=== PATIENT | male | born 1980 | race Caucasian/White ===

== ENCOUNTER 2024-06-14 08:34 | Outpatient (AMB) | payer OTHER, SELFPAY ==
--- NOTE | 2024-06-14 08:38 | A.OFFPC_ITS ---
Vital Signs 06/14/24 08:42 Height 5 ft 9 in Weight 224 lb 6 oz BMI 33.1 BP 120/78 Blood Pressure Location Lt brachial Position Sitting Pulse 71 Pulse Source Pulse Oximeter Pulse Oximetry (%) 96 Oxygen Delivery Method Room Air Intake Visit Reasons: [facility] Sandblaster Paint Sprayer Required: No Accompanied by: Self / Same As Patient Allergies amoxicillin Allergy (Mild, Verified 06/14/24 08:52) Hives Medication List - Last Reconciled 06/14/24 by FRANCISCA Huber No Known Home Meds Tobacco use date assessed: 06/14/24 Dental Screening Dental Screen Date: 06/14/24 Did you have a dental visit in the last 12 months?: Yes Did you have a dental problem in the last 6 months where you did not have access to dental care?: No Was dental information given to patient?: Patient has dentist HPI [facility] HPI Details Previous PCP: Ariel Santos, [facility] Last visit: a while ago Last PE: 2020 Specialist: GI digestive issues, report that he was usign to much ibuprofen on a daily basis, colonoscopy OBGYN:n/a Past medical history: Erectile dysfunction, HSV infection, hyperlipidemia, IBS, lactose intolerance, proctitis, hx of anterior cruciate ligament tear(Left) in High school Medications: Valacyclovir 1GM BID for out break, sildenafil 50 mg Family HX: Mother (SD) and Breast cancer Problem: The patient is 44 year old male presenting to [facility] Patient reports that he moved from [facility] and reports that his last exam was 2020 The patient reports that about a month ago he had streaks of blood in his semen Reports that this went on for about 8 weeks last year Reports that the only thing that he noticed was that is right testicle was bigger than left Reports mild intermittent tenderness to right testicle with palpation He also reports a decrease in his urine stream when urinating He denies increased frequency or urge. Denies dysuria. Denies discharged Patient declined STD testing. Urinalysis and scrotal ultrasound was ordered PSA was also ordered. Will refer the patient to urology as well The requested for his medications to be refilled. He denies shortness of breath, chest pain, heart palpitation, dizziness Denies abdominal pain and change in bowel habits Reports that he was seen GI and obtain a colonoscopy for recurrent stomach irritation Reports that he stopped using ibuprofen and noticed that was the cause of tarango his stomach issues [facility] Medical History (Updated 06/14/24 @ 12:12 by FRANCISCA Huber) Hyperlipidemia Lactose intolerance Proctitis IBS (irritable bowel syndrome) Erectile dysfunction HSV-1 (herpes simplex virus 1) infection Surgical History (Updated 06/14/24 @ 12:12 by FRANCISCA Huber) History of repair of anterior cruciate ligament of left knee Family History (Updated 06/14/24 @ 11:42 by FRANCISCA Huber) Mother Breast cancer Myocardial infarction Other Heart disease Social History Housing: Apartment Patient Tobacco Use Status: Never used Tobacco e-Cigarette/Vaping Use: Never Used Second Hand Smoke Exposure: No service: No Current occupational status: employed Current occupational exposures/hazards: Yes Cognitive needs: No Hearing needs: No Vision needs: Yes Questionnaire PHQ-9 Over the last 2 weeks, how often have you been bothered by any of the following problems? 1. Little interest or pleasure in doing things: not at all 2. Feeling down, depressed, or hopeless: not at all 3. Trouble falling or staying asleep, or sleeping too much: not at all 4. Feeling tired or having little energy: not at all 5. Poor appetite or overeating: not at all 6. Feeling bad about yourself - or that you are a failure or have let yourself or your family down: not at all 7. Trouble concentrating on things, such as reading the newspaper or watching television: not at all 8. Moving or speaking so slowly that other people could have noticed. Or the opposite - being so fidgety or restless that you have been moving around a lot more than usual: not at all 9. Thoughts that you would be better off or of hurting yourself in some way: not at all Total score: 0 Depression Screening Interpretation: Negative Depression Screening Done: Yes 71580 - PHQ-9 Billing: Yes Source: Developed by Drs. Joshua Villanueva, Jenny Kay, Clark Woody and colleagues, with an educational raymundo from [employer]. Thrive Questionnaire Date Thrive assessed: 06/14/24 I am a: Patient What is your living situation today?: I have a steady place to live Within the past 12 months, did the food you bought not last and you didn't have the money to get more?: Never true Within the past 12 months, did you worry whether your food would run out before you got money to buy more?: Never true Do you have trouble paying for medicines?: No Do you have trouble getting transportation to medical appointments?: No Do you have trouble paying your heating and electricity bill?: No Do you have trouble taking care of your child, family member or friend?: No Do you have trouble with day-to-day activities such as bathing, preparing meals, shopping, managing finances, etc.?: No Are you currently unemployed and looking for a job?: No Are you interested in more education?: Yes Please select the resources that you would like help with: None Currently or been in a relationship where the following occur: No concerns reported THRIVE Score: 0 AUDIT C Alcohol Use Questionnaire (AUDIT-C) 1. How often do you have a drink containing alcohol?: Never 3. How often do you have six or more drinks on one occasion?: Never Total Score: 0 ALTAGRACIA-7 AMB Questionnaire ALTAGRACIA-7 Date ALTAGRACIA - 7 assessed: 06/14/24 Feeling nervous, anxious, or on edge: 0 = Not at all Not being able to stop or control worryin = Not at all Worrying too much about different things: 0 = Not at all Trouble relaxin = Not at all Being so restless that it is hard to sit still: 0 = Not at all Becoming easily annoyed or irritable: 0 = Not at all Feeling afraid as if something awful might happen: 0 = Not at all Total ALTAGRACIA-7 score (0-4 normal; 5-9 mild; 10-14 moderate; 15-21 severe): 0 Source: Developed by Drs. Joshua Villanueva, Jenny Kay, Clark Woody and colleagues, with an educational raymundo from [employer]. ALTAGRACIA-7 Assessment Billing ALTAGRACIA-7 Assessment Tool: ALTAGRACIA-7 Assessment 20600 Review of Systems Const Details: Denies chills, Denies fatigue, Denies fever(s), Denies headache(s) and Denies weakness HEENT Denies change in vision, Denies dizziness, Denies headache(s), Denies hearing loss, Denies nasal congestion, Denies sinus pain, Denies sinus pressure and Denies sore throat Card Denies chest pain, Denies lightheadedness, Denies dyspnea and Denies other (palpitations) Resp Denies cough, Denies dyspnea and Denies wheezing GI Denies abdominal pain, Denies melena, Denies hematochezia, Denies change in bowel habits, Denies dyspepsia and Denies nausea Denies hematuria and Denies dysuria other: weak urinary stream. intermittent scrotal tenderness Musc Denies abnormal gait, Denies myalgias, Denies arthralgias, Denies numbness and Denies tingling Skin/Breast Denies rash, Denies unusual bruising and Denies wounds Neuro Denies abnormal gait, Denies dizziness, Denies headache(s), Denies memory loss, Denies numbness, Denies Sensory deficit (Neuro), Denies tingling and Denies wea kness Psych Denies anxiety, Denies depression and Denies memory loss Endo Denies cold intolerance, Denies fatigue, Denies heat intolerance, Denies polydipsia and Denies polyuria Jack/Lymph Denies easy bleeding and Denies easy bruising Aller/Immun Denies wheezing Physical exam (Primary Care) Vital Signs: Last Vital Signs Pulse 71 06/14/24 08:42 BP 120/78 06/14/24 08:42 Pulse Ox 96 06/14/24 08:42 Oxygen Delivery Method Room Air 06/14/24 08:42 BMI result Body Mass Index 33.1 Tobacco/Smoking Status: Tobacco use Status Tobacco use date assessed 06/14/24 06/14/24 08:49 Patient Tobacco Use Status Never used Tobacco 06/14/24 08:49 e-Cigarette/Vaping Use Never Used 06/14/24 08:49 PHQ-9: PHQ-9 Score PHQ-9: Total score 0 06/14/24 08:58 Depression Screening Interpretation: Negative Thrive Assessment: Date of Thrive Assessment Date Thrive assessed 06/14/24 06/14/24 08:49 Currently or been in a relationship where the following occur: No concerns reported Const Other: General: no acute distress, well developed, alert and awake Nutritional Appearance: well nourished Orientation/consciousness: patient oriented x3 HENMT Head: Yes normocephalic and Yes atraumatic Ears: hearing grossly normal bilaterally and TM's normal bilaterally General nose exam: Normal external nose present and Normal nares present Mouth: Normal oral and palatal mucosa present and moist mucous membranes Teeth and gingiva: dentition normal Throat: Yes oropharynx normal Eyes Pupils: Equal, round and reactive pupils present and Pupil accommodation reflex normal EOM: EOMs intact bilaterally Neck Neck: Yes normal visual inspection, Yes no lymphadenopathy and Yes trachea midline Lymphatic: no lymphadenopathy noted Resp Effort & Inspection: normal respiratory effort Auscultation: clear to auscultation bilaterally Cardio Rate: regular rate Rhythm: regular rhythm Heart sounds: S1 normal heart sound present, S2 normal heart sound present, no gallops, no murmurs and no rubs GI Palpation (GI): No Abdominal aortic bruit present, Soft to palpation, nontender, No hepatosplenomegaly present and No Rebound tenderness present Auscultation: normal bowel sounds General: Yes no CVA tenderness other: normal appearing testicles, no tenderness with palpation Back/Spine/Pelvis Back: no CVA tenderness Cervical Spine: cervical ROM normal and No Cervical spine tenderness Thoracic/Lumbar Spine: thoraco-lumbar ROM normal, No pain with thoraco-lumbar ROM, No thoracic spinal tenderness and No lumbar spinal tenderness Skin General: warm and dry. Normal skin color. Normal skin turgor Lesions: no lesions Rashes: no rashes Trauma: no lacerations or abrasions Wounds: no wounds Nails: normal Neuro General: patient oriented x3, gait normal Cranial nerves: Yes Equal, round and reactive pupils present Cognition (Neuro): normal cognition Gait exam (Neuro): Normal gait present Extrem General: Yes normal to inspection, No edema and No calf tenderness Psych Appearance: grossly normal Affect: normal affect Attitude: cooperative Thought process: Normal thought process present Coding Level of Care Code New Pt Level 4 (19943) Diagnoses Urinary stream slowing R39.198 Bloody ejaculation R36.1 HSV-1 (herpes simplex virus 1) infection B00.9 Erectile dysfunction, unspecified erectile dysfunction type N52.9 Erectile dysfunction type: unspecified Tenderness of scrotum N50.9 Additional Codes PHQ-9 - 06692 - PHQ-9 Billing: Yes ([id number]) ALTAGRACIA-7 Assessment Billing - ALTAGRACIA-7 Assessment Tool: ALTAGRACIA-7 Assessment 67138 ([id number]) Time Spent (min) 39 Assessment & Plan Assessment & Plan (1) Urinary stream slowing: Code(s): R39.198 - Other difficulties with micturition Category: Medical Plan: The reports that he noticed that his urinary stream is weaker than before He is denying any other urinary symptoms at this time urinalysis and a PSA ordered. considered referring the patient to urology (2) Bloody ejaculation: Code(s): R36.1 - Hematospermia Category: Medical Plan: Reports this happened about 6 months ago for about an eight week span Reports that he never got this evaluated Will order and scrotal US, urinalysis, and PSA. The declines STD testing (3) HSV-1 (herpes simplex virus 1) infection: Code(s): B00.9 - Herpesviral infection, unspecified Category: Medical Plan: Valacyclovir 1 gm refiled. Reports outbreaks with stress (4) Erectile dysfunction: Code(s): N52.9 - Male erectile dysfunction, unspecified Category: Medical Qualifiers: Erectile dysfunction type: unspecified Qualified Code(s): N52.9 - Male erectile dysfunction, unspecified Plan: Sildenafil 50 mg daily PRN refilled (5) Tenderness of scrotum: Code(s): N50.9 - Disorder of male genital organs, unspecified Category: Medical Plan: Reports that the tenderness is intermittent. No tenderness on exam today scrotal US ordered Plan The patient to return in 1 month for physical exam Orders: Orders CK, Total+Isoenzymes, Serum Today Z00.00 - Encounter for general adult medical examination without abnormal findings Complete Blood Count Auto Diff Today Z00.00 - Encounter for general adult medical examination without abnormal findings Lipid Panel Today Z00.00 - Encounter for general adult medical examination without abnormal findings UA CC w/rflx Micro + Cult Today Z00.00 - Encounter for general adult medical examination without abnormal findings PSA,Total (Free>4and<10) Today R36.1 - Hematospermia, R39.198 - Other difficulties with micturition TSH reflex Free T4 Today Z00.00 - Encounter for general adult medical examination without abnormal findings Vitamin D 25-OH Total Today Z00.00 - Encounter for general adult medical examination without abnormal findings Glucose Fasting Today Z00.00 - Encounter for general adult medical examination without abnormal findings US scrotum Today R36.1 - Hematospermia Medications: New valacyclovir 1,000 mg PO BID 60 tabs 2RF sildenafil (Viagra) administer 30 minutes to 4 hours before activity 50 mg PO DAILY PRN 30 tabs 1RF sexual activity valacyclovir Take during outbreaks 1,000 mg PO BID 20 tabs 2RF
--- OUTSIDE RECORDS SUMMARY | 2024-06-14 08:38 | XMS_ITS | Encounter Summary ---
Author Organization [facility] Address [address] [place] [address] Care Team Providers Care Merchandise Distributor Name Role Phone Pcp, Amanda Primary Care Provider Sona Dial APRN Primary Care Provider Frank Hargrove MD Primary Care Provider Ariel Glass MD Primary Care Provider [phone] Reason for Visit * Reason Comments Medication Refill Encounter Details Date Type Department Care Team (Late st Contact Info) Description 06/02/2017 Refill [facility] [place] [address] [place] [phone] Ivory Vaca PA [address] [place] [address] Herpes simplex Social History Tobacco Use Types Packs/Day Years Used Date Smoking Tobacco: Former Alcohol Use Standard Drinks/Week Comments Not Asked 0 (1 standard drink = 0.6 oz pur e alcohol) Sex and Gender Information Value Date Recorded Sex Assigned at Not on file Gender Identity Not on file Sexual Orientation Not on file documented as of this encounter Plan of Treatment Not on file documented as of this encounter Visit Diagnoses Diagnosis Herpes simplex Herpes simplex without mention of complication documented in this encounter Care Teams Merchandise Distributor Relationship Specialty Start Date End Date Pcp, Amanda PCP - General General Medicine 08/16/15 04/24/18 Sona Hargrove APRN [address] [place] [address] PCP - General 04/25/18 05/26/18 Frank Hargrove MD [address] [place] [address] PCP - General Internal Medicine 05/27/18 02/10/21 Ariel Glass MD [address] [place] [id number] PCP - General Internal Medicine 02/11/21 documented as of this encounter
--- OUTSIDE RECORDS SUMMARY | 2024-06-14 08:38 | XMS_ITS | Encounter Summary ---
Author Organization [facility] Address [address] [place] [address] Care Team Providers Care Slurry Tank Tender Name Role Phone Unknown Pcp, Non Php Primary Care Provider Unava ilable Reason for Visit * Reason Comments Medical Record Encounter Details Date Type Department Care Team (Late st Contact Info) Description 05/22/2024 Telephone [facility] Care [address] [place] [phone] Ariel Glass MD [address] [place] [id number] Medical Record Social History Tobacco Use Types Packs/Day Years Used Date Smoking Tobacco: Never Assessed Comments:Smoking Status:No c urrent tobacco use Sex and Gender Information Value Date Recorded Sex Assigned at Not on file Legal Sex Male 8:36 PM EDT Gender Identity Not on file Sexual Orientation Not on file documented as of this encounter Miscellaneous Notes * Telephone Encounter - Martha Peoples - 05/22/2024 2:54 PM EST I scanned records request as urgent. When indexed please release. Thanks documented in this encounter Plan of Treatment Not on file documented as of this encounter Visit Diagnoses Not on filedocumented in this encounter Care Teams Slurry Tank Tender Relationship Specialty Start Date End Date Unknown Pcp, Non Php PCP - General 05/22/24 documented as of this encounter
--- OUTSIDE RECORDS SUMMARY | 2024-06-14 08:38 | XMS_ITS | Encounter Summary ---
Author Organization [facility] Address [address] [place] [address] Care Team Providers Care Hand Filer Balance Wheel Name Role Phone Pcp, Amanda Primary Care Provider Sona Dial APRN Primary Care Provider Frank Hargrove MD Primary Care Provider Ariel Glass MD Primary Care Provider [phone] Encounter Details Date Type Department Care Team (Late st Contact Info) Description 04/07/2018 Scanned Document [facility] INTERNAL MED SCAN Frnak Hargrove MD [address] [place] [address] Social History Tobacco Use Types Packs/Day Years [...] on filedocumented in this encounter Care Teams Hand Filer Balance Wheel Relationship Specialty Start Date End Date Pcp, No PCP - General General Medicine 08/16/15 04/24/18 Sona Hargrove APRN [address] [place] [address] PCP - General 04/25/18 05/26/18 Frank Hargrove MD [address] [place] [address] PCP - General Internal Medicine 05/27/18 02/10/21 Ariel Glass MD [address] [place] [id number] PCP - General Internal Medicine 02/11/21 documented as of this encounter
--- OUTSIDE RECORDS SUMMARY | 2024-06-14 08:38 | XMS_ITS | Clinical Summary ---
Author Organization [facility] Address [address] [place] [address] Care Team Providers Care Purchasing Administrative Assistant Name Role Phone Unknown Pcp, Non Php Primary Care Provider Unava ilable Allergies Active Allergy Reactions Criticality Noted Date Comments Amoxicillin 02/17/2017 Reactions: Hives , Reactions: Flushing Medications Valacyclovir HCl (VALTREX) 1 g tablet TAKE 2 TABLETS TWICE DAILY 4 0 8 Active Sildenafil Citrate (VIAGRA) 50 MG tablet TAKE 1 TABLET BY MOUTH 1 HOUR BEFORE NEEDED MAX DAILY DOSE 1 TABLET 6 5 1 Active Mesalamine (CANASA) 1000 MG suppository INSERT 1 SUPP Twice daily 15 suppository 0 2 Active Active Problems Problem Noted Date Diagnosed Date Erectile dysfunction 02/11/2021 Proctitis 01/28/2021 Lactose intolerance 04/23/2020 IBS (irritable bowel syndrome) 04/23/2020 HSV infection 12/04/2019 Hyperlipidemia 02/17/2017 Encounters Date Type Department Care Team Description 05/22/2024 Telephone [facility] Care [address] [place] [phone] Ariel Glass MD Medical Record from Last 3 Months Family History Medical History Relation Name Comments Cancer - Breast Mother malignant ne oplasm of breast : Mother Heart Disorder Mother acute myocard ial infarction : Mother Relation Name Status Comments Mother Social History Tobacco Use Types Packs/Day Years Used Date Smoking Tobacco: Never Assessed Comments:Smoking Status:No c urrent tobacco use Sex and Gender Information Value Date Recorded Sex Assigned at Not on file Legal Sex Male 8:36 PM EDT Gender Identity Not on file Sexual Orientation Not on file Last Filed Vital Signs Vital Sign Reading Time Taken Comments Blood Pressure 116/80 05/06/2021 8:14 AM EST Pulse 66 05/06/2021 8:14 AM EST Temperature 36.6 ??C (97.8 ??F) 05/06/2021 8:14 AM ES T Respiratory Rate 18 05/06/2021 8:14 AM EST Oxygen Saturation 98% 05/06/2021 8:14 AM EST Inhaled Oxygen Concentration - - Weight 91.2 kg (200 lb 15.9 oz) 05/06/2021 8:14 AM EST Height 172.7 cm (5' 8 ) 05/06/2021 8:14 AM EST Body Mass Index 30.56 05/06/2021 8:14 AM EST Plan of Treatment Health Maintenance Due Date Last Done Comments DTaP/Tdap/Td (1 - Tdap) 1998 Hep B (1 of 3 - 19+ 3-dose series) 1999 COVID-19 Vaccine (2023- season) 2023 Influenza (#1) 2023 Zoster (Shingrix) (1 of 2) 2030 Colonoscopy Discontinued 06/02/2018, 06/02/2018 Hepatitis C Screening Completed 05/01/2020 LDL Cholesterol Discontinued 05/06/2021, 09/2020, 04/07/2018 Physical Discontinued 05/06/2021, 03/27, 04/13/2019, Additional history exists HPV Vaccine Aged Out No longer eligi ble based on patient's age to complete this topic Hep A Aged Out No longer eligi ble based on patient's age to complete this topic Hib Aged Out No longer eligi ble based on patient's age to complete this topic Meningococcal ACWY Aged Out No longer eligible based on patient's age to complete this topic Pneumococcal Aged Out No longer eligi ble based on patient's age to complete this topic Procedures Procedure Name Priority Date/Time Associated Diagnosis Comments LIPID PANEL, PLASMA Routine 05/06/2021 9 :10 AM EST HEPATITIS C ANTIBODY W/ REFLEX TO RNA, QN, RT PCR Routine 05/01/2020 6:34 AM EST COLONOSCOPY Routine 06/02/2018 10:11 AM EST from Last 3 Months or Most Recently Relevant to Health Maintenance Results * (ABNORMAL) LIPID PANEL, PLASMA (05/06/2021 9:10 AM EST) Cholesterol 190 0 - 199 mg/dL [facility] CONVERSIONS Triglyceride 45 0 - 150 mg/dL [facility] CONVERSIONS VLDL Cholesterol 9 5 - 40 mg/dL [facility] CONVERSIONS HDL Cholesterol 64 40 - 80 mg/dL [facility] CONVERSIONS LDL Cholesterol 117(H) 0 - 100 mg/dL [facility] CONVERSIONS Cholesterol Non-HDL 126 0 - 130 mg/dl PH[facility] CONVERSIONS CHOL/HDL Ratio 3.0 PH[facility] CONVERSIONS 05/06/2021 9:10 AM EST Narrative PHCT CONVERSIONS - 05/06/2021 2:18 PM EST FASTING: NO Fasting reference interval. ??[facility] Lipid testing results require a 12 hour fasting specimen. ??Use caution when interpreting non-fasting cholesterol and triglyceride results. Testing Performed at: [facility], [address] [place] [address], , Digital Experience Manager: Camelia Lomeli MD CL#[id number] 2:45PM by Ariel Glass: ??Glucose is just slightly elevated. ??Nearly normal. Lipids fine --all okay, no other action needed at this time us Ariel Glass MD LABORATORY Final Resul t PHCT CONVERSIONS * HEPATITIS C ANTIBODY W/ REFLEX TO RNA, QN, RT PCR (05/01/2020 6:34 AM EST) Hepatitis C virus Ab NON-REACT KANE NON-REACT KANE PH[facility] CONVERSIONS Hepatitis C virus Ab 0.05 <1.00 PH[facility] CONVERSIONS Comment:Antibodies to HCV we re not detected. NOTE: This does not entirely exclude the possibility of exposure to HCV since antibody production may lag infection. If there is a high suspicion of HCV infection HCV RNA testing may be of diagnostic value. 05/01/2020 6:34 AM EST Narrative PHCT CONVERSIONS - 05/01/2020 8:26 PM EST Testing Performed at: [facility], [address] [place] [address], [place] [address], , Digital Experience Manager: Chela Art MD CL#[id number] 11:27PM by Ariel Glass: ??All labs FINE. Glucose, Lipids ok. Thyroid fuction ok. us Ariel Glass MD LABORATORY Final Resul t PHCT CONVERSIONS * COLONOSCOPY (06/02/2018 10:11 AM EST) COLONOSCOPY, RESULT Normal PHCT CONVERSIONS DATE NEXT SCREEN VISIT 10 Years PHCT CONVERSIONS 06/02/2018 10:1 1 AM EST us Php Unknown Prov PROCEDURES Final Result PHCT CONVERSIONS from Last 3 Months or Most Recently Relevant to Health Maintenance Care Teams Purchasing Administrative Assistant Relationship Specialty Start Date End Date Unknown Pcp, Non Php PCP - General 05/22/24
--- OUTSIDE RECORDS SUMMARY | 2024-06-14 08:38 | XMS_ITS | Encounter Summary ---
Author Organization [facility] Address [address] [place] [address] Care Team Providers Care Green Energy Marketing Analyst Name Role Phone Pcp, Amanda Primary Care Provider Sona Dial APRN Primary Care Provider [phone] Frank Hargrove MD Primary Care Provider Ariel Glass MD Primary Care Provider Reason for Visit * Reason Comments Medication Refill Encounter Details Date Type Department Care Team (Late st Contact Info) Description 03/08/2017 Refill [facility] [place] [address] [place] [phone] Ivory Vaca PA [address] [place] [address] Herpes simplex Social History Tobacco [...] complication documented in this encounter Care Teams Green Energy Marketing Analyst Relationship Specialty Start Date End Date Pcp, Amanda PCP - General General Medicine 08/16/15 04/24/18 Sona Hargrove APRN [address] [place] [address] PCP - General 04/25/18 05/26/18 Frank Hargrove MD [address] [place] [address] PCP - General Internal Medicine 05/27/18 02/10/21 Ariel Glass MD [address] [place] [id number] PCP - General Internal Medicine 02/11/21 documented as of this encounter
--- OUTSIDE RECORDS SUMMARY | 2024-06-14 08:38 | XMS_ITS | Encounter Summary ---
Author Organization [facility] Address [address] [place] [address] Care Team Providers Care Flight Paramedic Name Role Phone Frank Hargrove MD Primary Care Provider [phone] Ariel Glass MD Primary Care Provider [phone] Encounter Details Date Type Department Care Team (Late st Contact Info) Description 06/02/2018 Scanned Document [facility] [address] [phone] Frank Connor MD [address] [place] [address] Social History Tobacco Use Types Packs/Day Years Used Date Smoking Tobacco: Former Smokeless Tobacco: Never Alcohol Use Standard Drinks/Week Comments Yes 0 (1 standard drink = 0.6 oz pur e alcohol) Sex and Gender Information Value Date Recorded Sex Assigned at Not on file Gender Identity Not on file Sexual Orientation Not on file documented as of this encounter Plan of Treatment Not on file documented as of this encounter Procedures Procedure Name Priority Date/Time Associated Diagnosis Comments PATHOLOGY REPORT 06/02/2018 12:0 0 AM EST documented in this encounter Results * (REPORT) PATHOLOGY REPORT (06/02/2018 12:00 AM EST) Frank Connor MD PATHOLOGY/CYTOLOGY O RDERABLES documented in this encounter Visit Diagnoses Not on filedocumented in this encounter Care Teams Flight Paramedic Relationship Specialty Start Date End Date Frank Hargrove MD PCP - General Internal Medicine 05/27/18 02/10/21 Ariel Glass MD [address] [place] [id number] PCP - General Internal Medicine 02/11/21 documented as of this encounter
--- OUTSIDE RECORDS SUMMARY | 2024-06-14 08:38 | XMS_ITS | Clinical Summary ---
Author Organization [facility] Address [address] [place] [address] Care Team Providers Care Capper Machine Operator Name Role Phone Ariel Glass MD Primary Care Provider [phone] Allergies Active Allergy Reactions Criticality Noted Date Comments Amoxicillin Unknown/Patient and Family Unable to Define Medium 08/27/2015 Medications Medication Sig Dispensed Refills Start Date End Date Status valACYclovir (VALTREX) 1000 MG tabletIndications :Herpes simplex Take 2 tablets (2,000 mg total) by mouth 2 (two) times a day. 4 tablet 2 12/19/2015 Active Probiotic Product (PROBIOTIC ACIDOPHILUS BEADS) Cap Take by mouth. Active Multiple Vitamin tablet Take 1 tablet by mouth daily. Active Misc Natural Products (APPLE CIDER VINEGAR DIET PO) Take by mouth. Active Na Sulfate-K Sulfate-Mg Sulf (SUPREP BOWEL PREP KIT) 17.5-3.13-1.6 GM/177ML SolutionIndicatio ns:Change in bowel function Take two 177 mL bottles as directed 2 Bottle 05/27/2018 Active Calcium Carb-Cholecalcife rol (CALCIUM 1000 + D PO) Take by mouth. Active Potassium 95 MG Tab Take by mouth. Active magnesium oxide 400 (241.3 Mg) MG Tab tablet Take 400 mg by mouth daily. Active mesalamine (CANASA) 1000 MG suppositoryIndica tions:Proctitis INSERT 1 SUPPOSITORY RECTALLY NIGHTLY FOR AT LEAST 1 TO 3 HOURS 14 suppository 05/29/2021 Active Active Problems No known active problems Family History Medical History Relation Name Comments Breast cancer Mother Heart attack Mother Relation Name Status Comments Mother Social [...] Sign Reading Time Taken Comments Blood Pressure 120/68 02/13/2021 10:09 AM EDT Pulse 60 02/13/2021 10:09 AM EDT Temperature 36.8 ??C (98.3 ??F) 02/13/2021 10:09 AM E DT Respiratory Rate 14 04/20/2016 10:10 AM EST Oxygen Saturation - - Inhaled Oxygen Concentration - - Weight 91.2 kg (201 lb) 02/13/2021 10:09 AM EDT Height 175.3 cm (5' 9 ) 02/13/2021 10:09 AM EDT Body Mass Index 29.68 02/13/2021 10:09 AM EDT Plan of Treatment Health Maintenance Due Date Last Done Comments Hepatitis C Virus Screening 1980 HIV Screening 1993 DTaP/Tdap/Td Vaccines (1 - Tdap) 1999 Hepatitis B Vaccines (1 of 3 - 19+ 3-dose series) 1999 Influenza Vaccine 11/25/2023 COVID-19 Vaccine (4 - 2023-2 5 season) 2023 04/29/2021, 06/24/2020, 05/05/2020 HPV Vaccines Aged Out No longer eligi ble based on patient's age to complete this topic Pneumococcal Vaccine: Pediatric (0-5 Years) and At-Risk Patients (6 to 49 Years) Aged Out No longer eligible b ased on patient's age to complete this topic Care Teams Capper Machine Operator Relationship Specialty Start Date End Date Ariel Glass MD [address] [place] [address] PCP - General Internal Medicine 02/11/21
[2024-06-14 08:42] VITALS: BP 120/78; PULSE 71; O2SAT 96; BMI 33.1
== END 2024-06-14 09:39 | disposition home or self-care (01) ==
DX: R39.198 Other difficulties with micturition (principal); R36.1 Hematospermia; B00.9 Herpesviral infection, unspecified; N52.9 Male erectile dysfunction, unspecified; N50.9 Disorder of male genital organs, unspecified

== ENCOUNTER → 2024-06-14 08:34 | Outpatient (BNVA) | payer OTHER, SELFPAY | DX: Z76.89 Persons encountering health services in other specified circumstances (principal); R39.198 Other difficulties with micturition; R36.1 Hematospermia; B00.9 Herpesviral infection, unspecified; N52.9 Male erectile dysfunction, unspecified; N50.9 Disorder of male genital organs, unspecified | CPT/HCPCS: 96127 ==

== ENCOUNTER 2024-07-05 11:55 | Outpatient (REF) | payer OTHER, SELFPAY ==
[2024-07-05 13:09] LABS: Appearance Urine Clear; Color Urine Yellow; Glucose Urine UA Negative (Negative); Leukocyte Esterase Urine Negative (Negative); Nitrite Urine Negative (Negative); PH 5.5 (5.0-9.0); Urine Blood Negative (Negative); Urine Ketones 40 mg/dL (Negative); Urine Protein Negative (Neg-Trace)
[2024-07-05 13:11] LABS: MANUAL DIFF FLAG NO
[2024-07-05 13:14] LABS: Basophils Percent Auto 0.5 % (0-2); Eosinophils Absolute Auto 0.1 X10*3/uL (0.0-0.4); Eosinophils Percent Auto 1.2 % (0-4); Hematocrit 49.2 % (42.0-52.0); Hemoglobin 17.1 g/dl (14.0-18.0); Imm Gran Abs Auto 0.01 X10*3/uL (0.00-0.03); Imm Gran Pct Auto 0.1 % (0.0-0.4); Lymphocytes Absolute Auto 2.2 X10*3/uL (1.2-4.9); Lymphocytes Percent Auto 26.3 % (20-40); Mean Corpuscular HGB Conc 34.8 g/dl (31.0-36.0); Mean Corpuscular Hemoglobin 30.4 pg (27.0-33.0); Mean Corpuscular Volume 87.5 fL (80.0-98.0); Mean Platelet Volume 10.4 fL (9.4-12.4); Monocytes Absolute Auto 0.7 X10*3/uL (0.1-1.2); Monocytes Percent Auto 8.4 % (2-11); Neutrophils Absolute Auto 5.3 x10*3/uL (2.0-8.3); Neutrophils Percent Auto 63.5 % (45-73); Platelet Count 277 X10*3/uL (160-400); Red Blood Count 5.62 X10*6/uL (4.60-5.80); Red Cell Distribution Width 12.1 % (11.0-16.0); White Blood Count 8.3 X10*3/uL (4.8-10.8)
[2024-07-05 13:33] LABS: Cholesterol 231 mg/dL (<200); Glucose Fasting 81 mg/dL (60-99); HDL Cholesterol 48 mg/dL (>40); LDL Cholesterol Calculated 167 mg/dL (<100); Triglycerides 82 mg/dL (<150)
[2024-07-05 13:46] LABS: PSA,Total (Free>4and<10) 0.92 ng/mL (0.00-4.00)
[2024-07-05 13:48] LABS: TSH reflex Free T4 0.07 uIU/mL (0.32-4.0); Vitamin D 25-OH Total 70.6 ng/mL (>30)
--- OUTSIDE RECORDS SUMMARY | 2024-07-05 13:59 | XMS_ITS | Encounter Summary ---
Author Organization [facility] Address [address] [place] [address] Care Team Providers Care Cargo Broker Name Role Phone Pcp, Amanda Primary Care Provider Sona Dial APRN Primary Care Provider Frank Hargrove MD Primary Care Provider Ariel Glass MD Primary Care Provider Encounter Details Date Type Department Care Team (Late st Contact Info) Description 04/07/2018 Scanned Document [facility] Frank Hargrove MD [address] [place] [address] Social History Tobacco Use Types Packs/Day Years [...] on filedocumented in this encounter Care Teams Cargo Broker Relationship Specialty Start Date End Date Pcp, No PCP - General General Medicine 08/16/15 04/24/18 Sona Hargrove APRN [address] [place] [address] PCP - General 04/25/18 05/26/18 Frank Hargrove MD [address] [place] [address] PCP - General Internal Medicine 05/27/18 02/10/21 Ariel Glass MD [address] [place] [address] PCP - General Internal Medicine 02/11/21 documented as of this encounter
--- OUTSIDE RECORDS SUMMARY | 2024-07-05 13:59 | XMS_ITS | Encounter Summary ---
Author Organization [facility] Address [address] [place] [address] Care Team Providers Care Fabrication Supervisor Name Role Phone Pcp, Amanda Primary Care Provider Sona Dial APRN Primary Care Provider Frank Hargrove MD Primary Care Provider [phone] Ariel Glass MD Primary Care Provider Reason for Visit * Reason Comments Medication Refill Encounter Details Date Type Department Care Team (Late st Contact Info) Description 03/08/2017 Refill [facility] [place] [address] [place] [address] Ivory Vaca PA [address] [place] [address] Herpes simplex Social History Tobacco [...] complication documented in this encounter Care Teams Fabrication Supervisor Relationship Specialty Start Date End Date Pcp, Amanda PCP - General General Medicine 08/16/15 04/24/18 Sona Hargrove APRN [address] [place] [address] PCP - General 04/25/18 05/26/18 Frank Hargrove MD [address] [place] [address] PCP - General Internal Medicine 05/27/18 02/10/21 Ariel Glass MD [address] [place] [address] PCP - General Internal Medicine 02/11/21 documented as of this encounter
--- OUTSIDE RECORDS SUMMARY | 2024-07-05 13:59 | XMS_ITS | Clinical Summary ---
Author Organization [facility] Address [address] [place] [address] Care Team Providers Care Operations Vocational Instructor Name Role Phone Ariel Glass MD Primary Care Provider Allergies Active Allergy Reactions Criticality Noted Date [...] age to complete this topic Care Teams Operations Vocational Instructor Relationship Specialty Start Date End Date Ariel Glass MD [address] [place] [address] PCP - General Internal Medicine 02/11/21
--- OUTSIDE RECORDS SUMMARY | 2024-07-05 13:59 | XMS_ITS | Clinical Summary ---
Author Organization [facility] Address [address] [place] [address] Care Team Providers Care Ornamental Machine Operator Name Role Phone Unknown Pcp, Non Php [...] Type Department Care Team Description 05/22/2024 Telephone [facility] Care [address] [place] [address] [phone] Ariel Glass MD Medical Record from Last [...] cholesterol and triglyceride results. Testing Performed at: [facility], [address] [place] [address], , Complaint Supervisor: Camelia Lomeli MD CL#[id number] 2:45PM by Ariel Glass: ??Glucose is just [...] 05/01/2020 8:26 PM EST Testing Performed at: [facility], [address] [place] [address], [place] [address], , Complaint Supervisor: Chela Art MD CL#[id number] 11:27PM by Ariel Glass: ??All labs FINE. [...] Recently Relevant to Health Maintenance Care Teams Ornamental Machine Operator Relationship Specialty Start Date End Date Unknown Pcp, Non Php PCP - General 05/22/24
--- OUTSIDE RECORDS SUMMARY | 2024-07-05 13:59 | XMS_ITS ---
Author Name [facility] Organization Unknown Encounters Encounter Type Encounter Reason Primary Diagnosis Location Date Ambulatory [facility] 04/27 Emergency NEEDS MED REFILL NEEDS MED REFILL [facility] 02/05/2023 Ambulatory Other specified diseases of anus and rectum [facility] 02/13/2021 Care Team Organization Name Specialty Phone Email Start Date End Da te [facility]2024 [facility] Primary Care 02/09/2023 025 [facility] Primary Care 02/05/2023 023 [facility] Primary Care 02/13/[id number] [facility] Primary Care 02/13/2021 02/14/20 [facility] Primary Care [id number]/13/[id number] [facility] Primary Care 01/27/2021 05/29/2021 [facility] OANH JOHNSON Primary Care
--- OUTSIDE RECORDS SUMMARY | 2024-07-05 14:00 | XMS_ITS | Encounter Summary ---
Author Organization [facility] Address [address] [place] [address] Care Team Providers Care Music Adapter Name Role Phone Pcp, Amanda Primary Care Provider Sona Dial APRN Primary Care Provider Frank Hargrove MD Primary Care Provider Ariel Glass MD Primary Care Provider Reason for Visit * Reason Comments Medication Refill Encounter Details Date Type Department Care Team (Late st Contact Info) Description 06/02/2017 Refill [facility] [place] [address] [place] [phone] Ivory Vaca PA [address] [place] [address] Herpes simplex Social History Tobacco [...] complication documented in this encounter Care Teams Music Adapter Relationship Specialty Start Date End Date Pcp, Amanda PCP - General General Medicine 08/16/15 04/24/18 Sona Hargrove APRN [address] [place] [address] PCP - General 04/25/18 05/26/18 Frank Hargrove MD [address] [place] [address] PCP - General Internal Medicine 05/27/18 02/10/21 Ariel Glass MD [address] [place] [address] PCP - General Internal Medicine 02/11/21 documented as of this encounter
--- OUTSIDE RECORDS SUMMARY | 2024-07-05 14:00 | XMS_ITS | Encounter Summary ---
Author Organization [facility] Address [address] [place] [address] Care Team Providers Care Wire Mesh Filter Fabricator Name Role Phone Frank Hargrove MD Primary Care Provider [phone] Ariel Glass MD Primary Care Provider [phone] Encounter Details Date Type Department Care Team (Late st Contact Info) Description 06/02/2018 Scanned Document [facility] [address] [phone] Frank Connor MD [address] [place] [address] Social History Tobacco Use Types Packs/Day Years [...] on filedocumented in this encounter Care Teams Wire Mesh Filter Fabricator Relationship Specialty Start Date End Date Frank Hargrove MD PCP - General Internal Medicine 05/27/18 02/10/21 Ariel Glass MD [address] [place] [address] PCP - General Internal Medicine 02/11/21 documented as of this encounter
[2024-07-05 14:37] LABS: Free T4 (Free Thyroxine) 1.24 ng/dL (0.71-1.85)
[2024-07-10 23:44] LABS: CK-BB None Detected (None Detected); CK-MB 0 % (<5); CK-MM 100 % (95-100); Creatine Kinase,Total,Serum 114 U/L (26-366)
== END 2024-07-05 11:56 | disposition home or self-care (01) ==
LOC: HO.10HDL 11:55
DX: Z00.00 Encounter for general adult medical examination without abnormal findings (principal); R36.1 Hematospermia; R39.198 Other difficulties with micturition; Z12.5 Encounter for screening for malignant neoplasm of prostate; Z13.1 Encounter for screening for diabetes mellitus; Z13.6 Encounter for screening for cardiovascular disorders
CPT/HCPCS: 36415; 80061; 81003; 82306; 82552; 82947; 84153; 84439; 84443; 85025

== ENCOUNTER 2024-07-05 16:26 | Outpatient (REF) | payer OTHER, SELFPAY ==
--- NOTE | ~2024-07-05 | US_ITS ---
CLINICAL HISTORY: R36.1 - Hematospermia US SCROTUM WITH DOPPLER Comparison: None Findings: Right testicle normal echotexture, 4.0 x 2.2 x 3.7 cm. Left testicle normal echotexture, 3.8 x 2.2 x 3.0 cm. Color Doppler and arterial/venous spectral tracings of both testicles within normal limits. Multiple small cysts and/or spermatoceles in the right epididymis. Solitary small left epididymis head cyst. No epididymal hyperemia. There is a cwffm-hb-wfpdqtki left hydrocele. No varicoceles. The left appendix testis is identified and appears unremarkable. IMPRESSION: 1. No testicular torsion or acute epididymo-orchitis. 2. Multiple cystic lesions in the right epididymis with solitary cystic lesion on the left. 3. Jvcdv-bn-gkxuotes left hydrocele. This document has been electronically signed by: Megan Painter DO on 07/05/2024 17:09:56
--- OUTSIDE RECORDS SUMMARY | 2024-07-05 18:36 | XMS_ITS | Clinical Summary ---
Author Organization [facility] Address [address] [place] [address] Care Team Providers Care Mechanism Inspector Name Role Phone Ariel Glass MD Primary Care Provider [phone] Allergies Active Allergy Reactions Criticality Noted Date [...] age to complete this topic Care Teams Mechanism Inspector Relationship Specialty Start Date End Date Ariel Glass MD [address] [place] [address] PCP - General Internal Medicine 02/11/21
--- OUTSIDE RECORDS SUMMARY | 2024-07-05 18:36 | XMS_ITS | Encounter Summary ---
Author Organization Formerly [facility] Address [address] [place] [address] Care Team Providers Care Regrind Mill Operator Name Role Phone Pcp, Amanda Primary Care Provider Sona Dial APRN Primary Care Provider Frank Hargrove MD Primary Care Provider Ariel Glass MD Primary Care Provider Reason for Visit * Reason Comments Medication Refill Encounter Details Date Type Department Care Team (Late st Contact Info) Description 06/02/2017 Refill [facility] [place] [address] [place] [address] Ivory Vaca PA [address] [place] [address] Herpes simplex Social History Tobacco [...] complication documented in this encounter Care Teams Regrind Mill Operator Relationship Specialty Start Date End Date Pcp, Amanda PCP - General General Medicine 08/16/15 04/24/18 Sona Hargrove APRN [address] [place] [address] PCP - General 04/25/18 05/26/18 Frank Hargrove MD [address] [place] [address] PCP - General Internal Medicine 05/27/18 02/10/21 Ariel Glass MD [address] [place] [id number] PCP - General Internal Medicine 02/11/21 documented as of this encounter
--- OUTSIDE RECORDS SUMMARY | 2024-07-05 18:36 | XMS_ITS | Clinical Summary ---
Author Organization [facility] Address [address] [place] [address] Care Team Providers Care Import Customer Service Manager Name Role Phone Unknown Pcp, Non Php [...] Type Department Care Team Description 05/22/2024 Telephone [facility] Care [address] [place] [address] [phone] Ariel Glass MD Medical Record from Last [...] cholesterol and triglyceride results. Testing Performed at: [facility], [address] [place] [address], , Meat Grinder: Camelia Lomeli MD CL#[id number] 2:45PM by Ariel Glass: ??Glucose is just [...] 05/01/2020 8:26 PM EST Testing Performed at: [facility], [address] [place] [address], [place] [address], , Meat Grinder: Chela Art MD CL#[id number] 11:27PM by Ariel Glass: ??All labs FINE. [...] Recently Relevant to Health Maintenance Care Teams Import Customer Service Manager Relationship Specialty Start Date End Date Unknown Pcp, Non Php PCP - General 05/22/24
--- OUTSIDE RECORDS SUMMARY | 2024-07-05 18:36 | XMS_ITS | Encounter Summary ---
Author Organization [facility] Address [address] [place] [address] Care Team Providers Care Senior Boiler Operator Name Role Phone Pcp, Amanda Primary Care Provider Sona Dial APRN Primary Care Provider Frank Hargrove MD Primary Care Provider [phone] Ariel Glass MD Primary Care Provider Reason for Visit * Reason Comments Medication Refill Encounter Details Date Type Department Care Team (Late st Contact Info) Description 03/08/2017 Refill [facility] [place] [address] [place] [address] Ivory Vaca PA [address] [place] [address] Herpes simplex Social History Tobacco [...] complication documented in this encounter Care Teams Senior Boiler Operator Relationship Specialty Start Date End Date Pcp, Amanda PCP - General General Medicine 08/16/15 04/24/18 Sona Hargrove APRN [address] [place] [address] PCP - General 04/25/18 05/26/18 Frank Hargrove MD [address] [place] [id number] PCP - General Internal Medicine 05/27/18 02/10/21 Ariel Glass MD [address] [place] [id number] PCP - General Internal Medicine 02/11/21 documented as of this encounter
--- OUTSIDE RECORDS SUMMARY | 2024-07-05 18:36 | XMS_ITS | Encounter Summary ---
Author Organization [facility] Address [address] [place] [address] Care Team Providers Care Cello Teacher Name Role Phone Pcp, Amanda Primary Care Provider Sona Dial APRN Primary Care Provider Frank Hargrove MD Primary Care Provider Ariel Glass MD Primary Care Provider [phone] Encounter Details Date Type Department Care Team (Late st Contact Info) Description 04/07/2018 Scanned Document [facility] Frank Hargrove MD [address] [place] [address] Social History Tobacco Use Types Packs/Day Years [...] on filedocumented in this encounter Care Teams Cello Teacher Relationship Specialty Start Date End Date Pcp, No PCP - General General Medicine 08/16/15 04/24/18 Sona Hargrove APRN [address] [place] [address] PCP - General 04/25/18 05/26/18 Frank Hargrove MD [address] [place] [address] PCP - General Internal Medicine 05/27/18 02/10/21 Ariel Glass MD [address] [place] [phone] PCP - General Internal Medicine 02/11/21 documented as of this encounter
--- OUTSIDE RECORDS SUMMARY | 2024-07-05 18:36 | XMS_ITS | Encounter Summary ---
Author Organization [facility] Address [address] [place] [address] Care Team Providers Care Home Restoration Service Cleaner Name Role Phone Frank Hargrove MD Primary Care Provider [phone] Ariel Glass MD Primary Care Provider [phone] Encounter Details Date Type Department Care Team (Late st Contact Info) Description 06/02/2018 Scanned Document [facility] [address] [phone] Frank Connor MD [address] [place] [address] Social History Tobacco Use Types Packs/Day Years [...] on filedocumented in this encounter Care Teams Home Restoration Service Cleaner Relationship Specialty Start Date End Date Frank Hargrove MD PCP - General Internal Medicine 05/27/18 02/10/21 Ariel Glass MD [address] [place] [id number] PCP - General Internal Medicine 02/11/21 documented as of this encounter
== END 2024-07-05 16:27 | disposition home or self-care (01) ==
LOC: HO.US 16:26
DX: R36.1 Hematospermia (principal)
CPT/HCPCS: 76870

== ENCOUNTER → 2024-07-05 16:28 | Outpatient (BNV) | payer OTHER, SELFPAY | PROVIDERS: Visit Provider Radiology Diagnostic Radiology | DX: N50.3 Cyst of epididymis (principal); N43.3 Hydrocele, unspecified | CPT/HCPCS: 76870 ==

== ENCOUNTER 2024-07-12 08:25 | Outpatient (AMB) | payer OTHER, SELFPAY ==
--- NOTE | 2024-07-12 08:28 | MHC.PC.OV ---
Vital Signs 07/12/24 08:33 Height 5 ft 9 in Weight 223 lb 12.8 oz BMI 33.0 BP 130/88 Blood Pressure Location Lt brachial Position Sitting Pulse 64 Pulse Source Pulse Oximeter Temp 98.9 F Temp Source Oral Pulse Oximetry (%) 96 Oxygen Delivery Method Room Air Intake Visit Reasons: Annual Exam Drive Thru Order Taker Required: No Accompanied by: Self / Same As Patient Allergies amoxicillin Allergy (Mild, Verified 07/12/24 08:59) Hives Medication List - Last Reconciled 07/12/24 by FRANCISCA Huber sildenafil (Viagra) 50 mg PO DAILY PRN valacyclovir 1,000 mg PO BID Tobacco use date assessed: 07/12/24 Dental Screening Dental Screen Date: 07/12/24 Did you have a dental visit in the last 12 months?: Yes Did you have a dental problem in the last 6 months where you did not have access to dental care?: No Was dental information given to patient?: Patient has dentist HPI Annual Exam HPI Details The patient is presenting for annual physical Dentist: up to date Eye: up to date Snellen: Right: Left: Corrected vision: glasses STI screening: Colonoscopy: Pap Smer: PHQ-9: Flu: declines COVID: x2 Tdap: up to date Diet: regular Exercise: None Scrotal US: 1. No testicular torsion or acute epididymo-orchitis. 2. Multiple cystic lesions in the right epididymis with solitary cystic lesion on the left. 3. Gxxft-sz-sfcmkdyi left hydrocele. urology referral was placed on the patient last visit The patient would like his testosterone checked as well. Feeling tired coming from working at times. Reports that he sit down all day and should not feel as tired as he does. Reports that he does not urinate with as great force like he did in his twenty's-The patient was referred to urology on his last appt Reports that he has attention issues: Reports not being focused. He wants to be tested for is. 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 1. Little interest or pleasure in doing things: not at all 2. Feeling down, depressed, or hopeless: not at all 3. Trouble falling or staying asleep, or sleeping too much: not at all 4. Feeling tired or having little energy: not at all 5. Poor appetite or overeating: not at all 6. Feeling bad about yourself - or that you are a failure or have let yourself or your family down: not at all 7. Trouble concentrating on things, such as reading the newspaper or watching television: more than half the days 8. Moving or speaking so slowly that other people could have noticed. Or the opposite - being so fidgety or restless that you have been moving around a lot more than usual: not at all 9. Thoughts that you would be better off or of hurting yourself in some way: not at all Total score: 2 Depression Screening Interpretation: Negative Depression Screening Done: Yes Source: Developed by Drs. Joshua Villanueva, Jenny Kay, Clark Woody and colleagues, with an educational raymundo from [employer]. Thrive Questionnaire Date Thrive assessed: 06/14/24 I am a: Patient What is your living situation today?: I have a steady place to live Within the past 12 months, did the food you bought not last and you didn't have the money to get more?: Never true Within the past 12 months, did you worry whether your food would run out before you got money to buy more?: Never true Do you have trouble paying for medicines?: No Do you have trouble getting transportation to medical appointments?: No Do you have trouble paying your heating and electricity bill?: No Do you have trouble taking care of your child, family member or friend?: No Do you have trouble with day-to-day activities such as bathing, preparing meals, shopping, managing finances, etc.?: No Are you currently unemployed and looking for a job?: No Are you interested in more education?: Yes Please select the resources that you would like help with: None Currently or been in a relationship where the following occur: No concerns reported THRIVE Score: 0 AUDIT C Alcohol Use Questionnaire (AUDIT-C) 1. How often do you have a drink containing alcohol?: Never 3. How often do you have six or more drinks on one occasion?: Never Total Score: 0 ALTAGRACIA-7 AMB Questionnaire ALTAGRACIA-7 Date ALTAGRACIA - 7 assessed: 07/12/24 Feeling nervous, anxious, or on edge: 0 = Not at all Not being able to stop or control worryin = Not at all Worrying too much about different things: 0 = Not at all Trouble relaxin = Not at all Being so restless that it is hard to sit still: 0 = Not at all Becoming easily annoyed or irritable: 0 = Not at all Feeling afraid as if something awful might happen: 0 = Not at all Total ALTAGRACIA-7 score (0-4 normal; 5-9 mild; 10-14 moderate; 15-21 severe): 0 Source: Developed by Drs. Joshua Villanueva, Jenny Kay, Clark Woody and colleagues, with an educational raymundo from [employer]. Review of Systems Const Reports fatigue (reports feeling more tired than usual) and Denies headache(s) Eyes Denies loss of vision ENT Denies vertigo, Denies dizziness, Denies headache(s) and Denies sore throat Card Denies chest pain, Denies leg edema and Denies lightheadedness Resp Denies cough, Denies hemoptysis and Denies wheezing GI Denies abdominal pain, Denies melena, Denies constipation, Denies diarrhea and Denies vomiting Denies dysuria, Reports testicular mass (us showed multiple cysts in left and one solitary cyst in right), Denies urinary frequency, Denies urinary urgency and Reports other (Reports that is force is not like before) Musc Denies arthralgias, Denies joint swelling, Denies numbness and Denies tingling Neuro Denies Abnormal speech present, Denies behavioral changes, Denies vertigo, Denies dizziness, Denies headache(s), Denies loss of vision, Denies memory loss, Denies numbness and Denies tingling Psych Denies anxiety, Denies behavioral changes, Denies depression, Reports difficulty concentrating, Denies memory loss and Denies panic attacks Endo Reports fatigue (reports feeling more tired than usual) Jack/Lymph Denies easy bleeding and Denies easy bruising Aller/Immun Denies wheezing Physical exam (Primary Care) Vital Signs: Last Vital Signs Temp 98.9 F 07/12/24 08:33 Pulse 64 07/12/24 08:33 BP 130/88 07/12/24 08:33 Pulse Ox 96 07/12/24 08:33 Oxygen Delivery Method Room Air 07/12/24 08:33 BMI result Body Mass Index 33.0 Tobacco/Smoking Status: Tobacco use Status Tobacco use date assessed 07/12/24 07/12/24 08:44 Patient Tobacco Use Status Never used Tobacco 07/12/24 08:44 e-Cigarette/Vaping Use Never Used 07/12/24 08:44 PHQ-9: PHQ-9 Score PHQ-9: Total score 2 07/12/24 09:43 Depression Screening Interpretation: Negative Thrive Assessment: Date of Thrive Assessment Date Thrive assessed 06/14/24 07/12/24 08:29 Currently or been in a relationship where the following occur: No concerns reported Const General: healthy appearing, no acute distress, alert and awake Nutritional Appearance: well nourished Orientation/consciousness: oriented to person, oriented to place and oriented to time [facility] Ears: TM's normal bilaterally General nose exam: Normal nasal mucous membranes and turbinates present Eyes Conjunctivae: conjunctivae normal Sclerae: sclerae normal Pupils: Equal, round and reactive pupils present Neck Neck: Yes no lymphadenopathy and Yes no JVD Thyroid: Thyroid normal Carotids: no bruits Resp Effort & Inspection: normal respiratory effort and not tachypneic Auscultation: no crackles, no rales, no rhonchi and no wheezes Cardio Rate: regular rate Rhythm: regular rhythm Heart sounds: no murmurs and normal S1 and S2 GI Palpation (GI): Soft to palpation, nontender, no hepatomegaly and no splenomegaly Auscultation: normal bowel sounds General: Yes no CVA tenderness Scrotum: scrotal mass Back/Spine/Pelvis Back: no CVA tenderness Cervical Spine: No cervical muscular tenderness Thoracic/Lumbar Spine: No thoracic spinal tenderness and No lumbar spinal tenderness Skin General skin exam: no rashes or lesions noted and dry skin Neuro General: oriented to person, oriented to place, oriented to time and CN's II-XI intact bilaterally Cranial nerves: Yes Equal, round and reactive pupils present Speech: No Abnormal speech present Gait exam (Neuro): Normal gait present Motor exam (neuro): no tremor noted Deep tendon reflexes (DTR's): Right triceps reflex intensity grade: 2+, Left triceps reflex intensity grade: 2+, Right patellar reflex intensity grade: 2+ and Left patellar reflex intensity grade: 2+ Extrem General: Yes capillary refill normal, Yes no pedal edema and Yes no calf tenderness Right upper extremity: full ROM Left upper extremity: full ROM Right lower extremity: full ROM; no edema Left lower extremity: full ROM; no edema Psych Mental Status: mental status grossly normal Speech and movement: Normal speech and movement present Affect: normal affect Attitude: cooperative Thought process: Normal thought process present Results Reviewed Results Reviewed: Laboratory Tests 07/05/24 12:00 WBC 8.3 RBC 5.62 Hgb 17.1 Hct 49.2 MCV 87.5 Plt Count 277 Fasting Glucose 81 Total Creatine Kinase 114 Triglycerides 82 Cholesterol 231 H LDL Cholesterol, Calc 167 H HDL Cholesterol 48 Total PSA 0.92 25-OH Vitamin D Total 70.6 TSH 0.07 L Free T4 1.24 Urine Color Yellow Urine Appearance Clear Urine pH 5.5 Ur Specific [place] 1.010 Urine Protein Negative Urine Glucose (UA) Negative Urine Ketones 40 Urine Blood Negative Urine Nitrite Negative Ur Leukocyte Esterase Negative Coding Level of Care Code Est Pt Prev Care 40-64y(37454) Diagnoses Annual physical exam Z00.00 Bloody ejaculation R36.1 Urinary stream slowing R39.198 HSV-1 (herpes simplex virus 1) infection B00.9 Tenderness of scrotum N50.9 Hyperthyroidism E05.90 Tiredness R53.83 Pure hypercholesterolemia with target low density lipoprotein (LDL) cholesterol less than 130 mg/dL E78.00 Erectile dysfunction, unspecified erectile dysfunction type N52.9 Erectile dysfunction type: unspecified Time Spent (min) 39 Assessment & Plan Assessment & Plan (1) Annual physical exam: Code(s): Z00.00 - Encounter for general adult medical examination without abnormal findings Category: Medical Plan: Preventative guidelines and recent blood work were reviewed with the patient. The patient is up to date on all screenings The declines flu, reports taking the first two covid vaccines. (2) Bloody ejaculation: Code(s): R36.1 - Hematospermia Category: Medical Plan: Reports this happened about 6 months ago for about an eight week span Reports that he never got this evaluated US of scrotal completed and showed multiple cyst 1. No testicular torsion or acute epididymo-orchitis. 2. Multiple cystic lesions in the right epididymis with solitary cystic lesion on the left. 3. Pjble-ze-nsveprkl left hydrocele. urology referral was placed on the patient last visit (3) Urinary stream slowing: Code(s): R39.198 - Other difficulties with micturition Category: Medical Plan: The reports that he noticed that his urinary stream is weaker than before He is denying any other urinary symptoms at this time urinalysis and a PSA were both normal (4) HSV-1 (herpes simplex virus 1) infection: Code(s): B00.9 - Herpesviral infection, unspecified Category: Medical Plan: Valacyclovir 1 gm refiled. Reports outbreaks with stress (5) Tenderness of scrotum: Code(s): N50.9 - Disorder of male genital organs, unspecified Category: Medical Plan: Reports that the tenderness is intermittent. No tenderness on exam today scrotal US ordered (6) Hyperthyroidism: Code(s): E05.90 - Thyrotoxicosis, unspecified without thyrotoxic crisis or storm Category: Medical Plan: tsh 0.07, free T4 1.24 asymptomatic, will continue to monitor (7) Tiredness: Code(s): R53.83 - Other fatigue Category: Medical Plan: testosterone ordered. Discussed with the patient about exercising and losing weight and the positive benefits they have on energy (8) Pure hypercholesterolemia with target low density lipoprotein (LDL) cholesterol less than 130 mg/dL: Code(s): E78.00 - Pure hypercholesterolemia, unspecified Category: Medical Plan: T-chol 231, LDL 167 Reinforced low cholesterol diet and active as tolerated Discussed with patient about starting on medication. The patient would like to like make dietary changes first before starting medication (9) Erectile dysfunction: Code(s): N52.9 - Male erectile dysfunction, unspecified Category: Medical Qualifiers: Erectile dysfunction type: unspecified Qualified Code(s): N52.9 - Male erectile dysfunction, unspecified Plan: Continue Sildenafil 50 mg daily PRN Orders: Orders Comprehensive Sullivan. Panel Fast 07/12/24 E05.90 - Thyrotoxicosis, unspecified without thyrotoxic crisis or storm, R53.83 - Other fatigue, E78.00 - Pure hypercholesterolemia, unspecified TSH reflex Free T4 07/12/24 E05.90 - Thyrotoxicosis, unspecified without thyrotoxic crisis or storm, R53.83 - Other fatigue, E78.00 - Pure hypercholesterolemia, unspecified Triiodothyronine T3 Total 07/12/24 E05.90 - Thyrotoxicosis, unspecified without thyrotoxic crisis or storm, R53.83 - Other fatigue, E78.00 - Pure hypercholesterolemia, unspecified Triiodothyronine T3 Reverse 07/12/24 E05.90 - Thyrotoxicosis, unspecified without thyrotoxic crisis or storm, R53.83 - Other fatigue, E78.00 - Pure hypercholesterolemia, unspecified Free T4 (Free Thyroxine) 07/12/24 E05.90 - Thyrotoxicosis, unspecified without thyrotoxic crisis or storm, R53.83 - Other fatigue, E78.00 - Pure hypercholesterolemia, unspecified Thyroid Stimulating Immunoglob 07/12/24 E05.90 - Thyrotoxicosis, unspecified without thyrotoxic crisis or storm, R53.83 - Other fatigue, E78.00 - Pure hypercholesterolemia, unspecified Complete Blood Count Auto Diff 3 Months E78.00 - Pure hypercholesterolemia, unspecified, R53.83 - Other fatigue, E05.90 - Thyrotoxicosis, unspecified without thyrotoxic crisis or storm Comprehensive Sullivan. Panel Fast 3 Months E78.00 - Pure hypercholesterolemia, unspecified, R53.83 - Other fatigue, E05.90 - Thyrotoxicosis, unspecified without thyrotoxic crisis or storm Lipid Panel 3 Months E78.00 - Pure hypercholesterolemia, unspecified, R53.83 - Other fatigue, E05.90 - Thyrotoxicosis, unspecified without thyrotoxic crisis or storm Vitamin D 25-OH Total 3 Months E78.00 - Pure hypercholesterolemia, unspecified, R53.83 - Other fatigue, E05.90 - Thyrotoxicosis, unspecified without thyrotoxic crisis or storm Triiodothyronine T3 Free 07/12/24 E05.90 - Thyrotoxicosis, unspecified without thyrotoxic crisis or storm, R53.83 - Other fatigue, E78.00 - Pure hypercholesterolemia, unspecified Testosterone, Free/Total 07/12/24 E05.90 - Thyrotoxicosis, unspecified without thyrotoxic crisis or storm, R53.83 - Other fatigue, E78.00 - Pure hypercholesterolemia, unspecified Iodine, Serum/Plasma 07/12/24 E05.90 - Thyrotoxicosis, unspecified without thyrotoxic crisis or storm, R53.83 - Other fatigue, E78.00 - Pure hypercholesterolemia, unspecified TSH reflex Free T4 3 Months E78.00 - Pure hypercholesterolemia, unspecified, R53.83 - Other fatigue, E05.90 - Thyrotoxicosis, unspecified without thyrotoxic crisis or storm UA CC w/rflx Micro + Cult 3 Months E78.00 - Pure hypercholesterolemia, unspecified, R53.83 - Other fatigue, E05.90 - Thyrotoxicosis, unspecified without thyrotoxic crisis or storm Free T4 (Free Thyroxine) 3 Months E78.00 - Pure hypercholesterolemia, unspecified, R53.83 - Other fatigue, E05.90 - Thyrotoxicosis, unspecified without thyrotoxic crisis or storm Glucose Fasting 3 Months E78.00 - Pure hypercholesterolemia, unspecified, R53.83 - Other fatigue, E05.90 - Thyrotoxicosis, unspecified without thyrotoxic crisis or storm
[2024-07-12 08:33] VITALS: BP 130/88; PULSE 64; TEMP 37.2; O2SAT 96; BMI 33.0
== END 2024-07-12 09:32 | disposition home or self-care (01) ==
LOC: HO.HMCH 08:26
DX: Z00.00 Encounter for general adult medical examination without abnormal findings (principal); R36.1 Hematospermia; R39.198 Other difficulties with micturition; B00.9 Herpesviral infection, unspecified; N50.9 Disorder of male genital organs, unspecified; E05.90 Thyrotoxicosis, unspecified without thyrotoxic crisis or storm; R53.83 Other fatigue; E78.00 Pure hypercholesterolemia, unspecified; N52.9 Male erectile dysfunction, unspecified

== ENCOUNTER 2024-08-02 12:09 | Outpatient (REF) | payer OTHER, SELFPAY ==
[2024-08-02 13:57] LABS: Alanine Aminotransferase 41 U/L (0-40); Alkaline Phosphatase 71 U/L (39-117); Anion Gap 12 (12-20); Aspartate Amino Transferase 25 U/L (5-37); Bilirubin Total 0.9 mg/dL (0.0-1.0); Blood Urea Nitrogen 13 mg/dL (9-16); Calcium 10.1 mg/dL (8.4-10.2); Carbon Dioxide 27 mmol/L (22-29); Chloride 104 mmol/L (96-108); Estimated Glomerular Filt Rate > 60; Glucose Fasting 85 mg/dL (60-99); Potassium 4.5 mmol/L (3.3-5.1); Sodium 138 mmol/L (135-145); Total Protein 8.1 g/dL (6.5-8.0)
[2024-08-02 14:12] LABS: Free T4 (Free Thyroxine) 1.25 ng/dL (0.71-1.85); TSH reflex Free T4 1.05 uIU/mL (0.32-4.0)
--- OUTSIDE RECORDS SUMMARY | 2024-08-02 14:12 | XMS_ITS | Clinical Summary ---
Author Organization [facility] Address [address] [place] [address] Care Team Providers Care Pss Delivery Professional Name Role Phone Unknown Pcp, Non Php [...] Type Department Care Team Description 05/22/2024 Telephone [facility] Care [address] [place] [address] [phone] Ariel Glass MD Medical Record from Last [...] cholesterol and triglyceride results. Testing Performed at: [facility], [address] [place] [address], , Senior Informatica Developer: Camelia Lomeli MD CL#[id number] 2:45PM by Ariel Glass: ??Glucose is just [...] 05/01/2020 8:26 PM EST Testing Performed at: [facility], [address] [place] [address], [place] [address], , Senior Informatica Developer: Chela Art MD CL#[id number] 11:27PM by Ariel Glass: ??All labs FINE. [...] Recently Relevant to Health Maintenance Care Teams Pss Delivery Professional Relationship Specialty Start Date End Date Unknown Pcp, Non Php PCP - General 05/22/24
--- OUTSIDE RECORDS SUMMARY | 2024-08-02 14:12 | XMS_ITS | Clinical Summary ---
Author Organization [facility] Address [address] [place] [address] Care Team Providers Care Certified Nursing Attendant Name Role Phone Ariel Glass MD Primary [...] age to complete this topic Care Teams Certified Nursing Attendant Relationship Specialty Start Date End Date rAiel Glass MD [address] [place] [id number] PCP - General Internal Medicine 02/11/21
--- OUTSIDE RECORDS SUMMARY | 2024-08-02 14:12 | XMS_ITS | Encounter Summary ---
Author Organization [facility] Address [address] [place] [id number] Care Team Providers Care Iron Bender Name Role Phone Frank Hargrove MD Primary Care Provider [phone] Ariel Glass MD Primary Care Provider [phone] Encounter Details Date Type Department Care Team (Late st Contact Info) Description 06/02/2018 Scanned Document [facility] [address] [id number] Frank Connor MD [address] [place] [id number] Social History Tobacco Use Types Packs/Day Years [...] on filedocumented in this encounter Care Teams Iron Bender Relationship Specialty Start Date End Date Frank Hargrove MD PCP - General Internal Medicine 05/27/18 02/10/21 Ariel Glass MD [address] [place] [address] PCP - General Internal Medicine 02/11/21 documented as of this encounter
--- OUTSIDE RECORDS SUMMARY | 2024-08-02 14:12 | XMS_ITS | Encounter Summary ---
Author Organization [facility] Address [address] [place] [address] Care Team Providers Care Harnessmaker Name Role Phone Pcp, Amanda Primary Care Provider Sona Dial APRN Primary Care Provider Frank Hargrove MD Primary Care Provider Ariel Glass MD Primary Care Provider [phone] Reason for Visit * Reason Comments Medication Refill Encounter Details Date Type Department Care Team (Late st Contact Info) Description 06/02/2017 Refill [facility] [place] [address] [place] [address] Ivory Vaca PA [address] [place] [address] Herpes simplex Social History Tobacco [...] complication documented in this encounter Care Teams Harnessmaker Relationship Specialty Start Date End Date Pcp, Amanda PCP - General General Medicine 08/16/15 04/24/18 Sona Hargrove APRN [address] [place] [address] PCP - General 04/25/18 05/26/18 Frank Hargrove MD [address] [place] [id number] PCP - General Internal Medicine 05/27/18 02/10/21 Ariel Glass MD [address] [place] [phone] PCP - General Internal Medicine 02/11/21 documented as of this encounter
--- OUTSIDE RECORDS SUMMARY | 2024-08-02 14:12 | XMS_ITS | Encounter Summary ---
Author Organization [facility] Address [address] [place] [address] Care Team Providers Care Edge Cutter Name Role Phone Pcp, Amanda Primary Care Provider Sona Dial APRN Primary Care Provider Frank Hargrove MD Primary Care Provider Ariel Glass MD Primary Care Provider [phone] Reason for Visit * Reason Comments Medication Refill Encounter Details Date Type Department Care Team (Late st Contact Info) Description 03/08/2017 Refill [facility] [place] [address] [place] [address] Ivory Vaca PA [address] [place] [address] Herpes simplex Social History Tobacco [...] complication documented in this encounter Care Teams Edge Cutter Relationship Specialty Start Date End Date Pcp, Amanda PCP - General General Medicine 08/16/15 04/24/18 Sona Hargrove APRN [address] [place] [address] PCP - General 04/25/18 05/26/18 Frank Hargrove MD [address] [place] [id number] PCP - General Internal Medicine 05/27/18 02/10/21 Ariel Glass MD [address] [place] [id number] PCP - General Internal Medicine 02/11/21 documented as of this encounter
--- OUTSIDE RECORDS SUMMARY | 2024-08-02 14:12 | XMS_ITS | Encounter Summary ---
Author Organization [facility] Address [address] [place] [address] Care Team Providers Care Pearl Fisherman Name Role Phone Pcp, Amanda Primary Care Provider Sona Dial APRN Primary Care Provider Frank Hargrove MD Primary Care Provider [phone] Ariel Glass MD Primary Care Provider Encounter Details Date Type Department Care Team (Late st Contact Info) Description 04/07/2018 Scanned Document [facility] INTERNAL MED SCAN Frank Hargrove MD [address] [place] [address] Social History Tobacco Use Types Packs/Day Years [...] on filedocumented in this encounter Care Teams Pearl Fisherman Relationship Specialty Start Date End Date Pcp, No PCP - General General Medicine 08/16/15 04/24/18 Sona Hargrove APRN [address] [place] [address] PCP - General 04/25/18 05/26/18 Frank Hargrove MD [address] [place] [address] PCP - General Internal Medicine 05/27/18 02/10/21 Ariel Glass MD [address] [place] [id number] PCP - General Internal Medicine 02/11/21 documented as of this encounter
[2024-08-03 08:52] LABS: Triiodothyronine T3 Free 3.1 pg/mL (2.3-4.2); Triiodothyronine T3 Total 95 ng/dL (76-181)
[2024-08-04 22:23] LABS: Iodine, Serum/Plasma 71 mcg/L (52-109)
[2024-08-06 16:19] LABS: Triiodothyronine T3 Reverse 30 ng/dL (8-25)
[2024-08-08 15:58] LABS: Thyroid Stimulating Immunoglob <89 % baseline (<140)
[2024-08-10 10:32] LABS: Testosterone, Free 79.4 pg/mL (35.0-155.0); Testosterone, Total 669 ng/dL (250-1100)
== END 2024-08-02 12:10 | disposition home or self-care (01) ==
LOC: HO.LAB 12:09
DX: E05.90 Thyrotoxicosis, unspecified without thyrotoxic crisis or storm (principal); R53.83 Other fatigue; E78.00 Pure hypercholesterolemia, unspecified
CPT/HCPCS: 36415; 80053; 83789; 84402; 84403; 84439; 84443; 84445; 84480; 84481; 84482

== ENCOUNTER 2024-10-02 11:46 | Outpatient (AMB) | payer OTHER, SELFPAY ==
--- NOTE | 2024-10-02 12:38 | AM.OFFWIN_ITS ---
Intake Vital Signs 10/02/24 12:45 Height 5 ft 9 in Weight 219 lb BMI 32.3 BP 128/80 Blood Pressure Location Lt brachial Position Sitting Respiration 16 Pulse 69 Pulse Source Pulse Oximeter Temp 98.7 F Temp Source Oral Pulse Oximetry (%) 98 Oxygen Delivery Method Room Air Intake Visit Reasons: EP Sore throat for 10 days [phone] Intake Note: Pt is here today c/o sore throat 10days Patient Tobacco Use Status: Never used Tobacco Allergies amoxicillin Allergy (Mild, Verified 07/12/24 08:59) Hives HPI HPI Comments History of Present Illness Details 44 Y/O Male patient who presents to the walk in clinic with c/o Sore- throat for 10 days. [facility] Medical History (Updated 10/02/24 @ 13:03 by Marium Leung NP) Acute streptococcal pharyngitis Hyperlipidemia Lactose intolerance Proctitis IBS (irritable bowel syndrome) Erectile dysfunction HSV-1 (herpes simplex virus 1) infection Surgical History History of repair of anterior cruciate ligament of left knee Family History Mother Breast cancer Myocardial infarction Other Heart disease Social History Housing: House Patient Tobacco Use Status: Never used Tobacco e-Cigarette/Vaping Use: Never Used Second Hand Smoke Exposure: No service: No Current occupational status: employed 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 Cognitive needs: No Hearing needs: No Vision needs: Yes (Glasses) Review of Systems Const All systems reviewed & are unremarkable except as noted in HPI and below Physical Exam Vital Signs: Last Vital Signs Temp 98.7 F 10/02/24 12:45 Pulse 69 10/02/24 12:45 Resp 16 10/02/24 12:45 BP 128/80 10/02/24 12:45 Pulse Ox 98 10/02/24 12:45 Oxygen Delivery Method Room Air 10/02/24 12:45 BMI result Body Mass Index 32.3 Const General: no acute distress Nutritional Appearance: overweight Orientation/consciousness: patient oriented x3 HEENT Head: Yes normocephalic Ears: external ears normal and TM abnormal with fluid behind the TM bilateral Face and sinus: Yes sinuses nontender Mouth: moist mucous membranes and Abnormal oral and palatal mucosa present erythematous and white patches Throat: Yes uvula midline Resp Effort & Inspection: normal respiratory effort Auscultation: clear to auscultation bilaterally Cardio Heart sounds: S1 normal heart sound present and S2 normal heart sound present Neuro General: patient oriented x3 Results AMB Rapid Strep AMB Rapid Strep Positive Last Edit by Angie Lerner CMA on 10/02/24 12:52 Results Reviewed Results Reviewed: Laboratory Last Values Strep Scn Rapid Clinic Positive 10/02/24 12:48 Assessment & Plan Assessment & Plan (1) Acute streptococcal pharyngitis: Code(s): J02.0 - Streptococcal pharyngitis Plan: Rapid Strep Positive Ordered Cephalexin for 10 days. OTC Sore-throat remedies. Orders: Orders AMB Rapid Strep Screen Today Z13.9 - Encounter for screening, unspecified Medications: New cephalexin 500 mg PO BID 10 days 20 caps 0RF J02.0 - Streptococcal pharyngitis Coding Level of Care Code Est Pt Level 4 (65191) Diagnoses Acute streptococcal pharyngitis J02.0 Time Spent (min) 20
[2024-10-02 12:45] VITALS: BP 128/80; PULSE 69; RESP 16; TEMP 37.1; O2SAT 98; BMI 32.3
== END 2024-10-02 14:00 | disposition home or self-care (01) ==
PROVIDERS: Visit Provider Nurse Practitioner Family
DX: Z13.9 Encounter for screening, unspecified (principal); J02.0 Streptococcal pharyngitis

== ENCOUNTER → 2024-10-02 11:46 | Outpatient (BNVA) | payer OTHER, SELFPAY | PROVIDERS: Visit Provider Nurse Practitioner Family | DX: J02.0 Streptococcal pharyngitis (principal) | CPT/HCPCS: 87880 ==

== ENCOUNTER 2024-10-13 11:20 | Outpatient (AMB) | payer OTHER, SELFPAY ==
[2024-10-13 11:22] VITALS: BP 128/88; PULSE 79; RESP 16; TEMP 36.9; O2SAT 96; BMI 32.2
--- NOTE | 2024-10-13 11:22 | A.OFFPC_ITS ---
Vital Signs 10/13/24 11:22 Height 5 ft 9 in Weight 218 lb BMI 32.2 BP 128/88 Blood Pressure Location Lt brachial Position Sitting Respiration 16 Pulse 79 Pulse Source Pulse Oximeter Temp 98.4 F Temp Source Oral Pulse Oximetry (%) 96 Oxygen Delivery Method Room Air Intake Visit Reasons: 3 month follow HLD Wet Roaster Required: No Accompanied by: Self / Same As Patient Allergies amoxicillin Allergy (Mild, Verified 10/14/24 14:19) Hives Medication List - Last Reconciled 10/14/24 by FRANCISCA Huber No Known Home Meds Tobacco use date assessed: 10/13/24 Dental Screening Dental Screen Date: 10/13/24 Did you have a dental visit in the last 12 months?: Yes Did you have a dental problem in the last 6 months where you did not have access to dental care?: No Was dental information given to patient?: Patient has dentist HPI 3 month follow HLD HPI Details The patient is a 44-year-old male presenting for a follow-up visit to discuss life improvement questions and review lab results. The patient has a history of hypercholesterolemia, which was identified during previous blood work. He was advised to repeat cholesterol testing, which he has not yet completed. The patient is aware of dietary modifications to manage cholesterol levels, including reducing intake of saturated fats and cholesterol- rich foods. The patient also has slightly elevated liver enzymes, with a recent test showing one enzyme at 41 U/L, slightly above the normal range. He was informed that factors such as alcohol consumption and certain medications could contribute to this elevation. The patient expressed concerns about his ability to focus and maintain attention, suspecting he might have ADHD. 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 The patient has been referred for further evaluation to confirm the diagnosis and discuss potential treatment options. 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 1. Little interest or pleasure in doing things: not at all 2. Feeling down, depressed, or hopeless: not at all 3. Trouble falling or staying asleep, or sleeping too much: not at all 4. Feeling tired or having little energy: not at all 5. Poor appetite or overeating: not at all 6. Feeling bad about yourself - or that you are a failure or have let yourself or your family down: not at all 7. Trouble concentrating on things, such as reading the newspaper or watching television: not at all 8. Moving or speaking so slowly that other people could have noticed. Or the opposite - being so fidgety or restless that you have been moving around a lot more than usual: not at all 9. Thoughts that you would be better off or of hurting yourself in some way: not at all Total score: 0 Depression Screening Interpretation: Negative Depression Screening Done: Yes Source: Developed by Drs. Joshua Villanueva, Jenny Kay, Clark Woody and colleagues, with an educational raymundo from [employer]. Thrive Questionnaire Date Thrive assessed: 10/13/24 I am a: Patient What is your living situation today?: I have a steady place to live Within the past 12 months, did the food you bought not last and you didn't have the money to get more?: Never true Within the past 12 months, did you worry whether your food would run out before you got money to buy more?: Never true Do you have trouble paying for medicines?: No Do you have trouble getting transportation to medical appointments?: No Do you have trouble paying your heating and electricity bill?: No Do you have trouble taking care of your child, family member or friend?: No Do you have trouble with day-to-day activities such as bathing, preparing meals, shopping, managing finances, etc.?: No Are you currently unemployed and looking for a job?: No Are you interested in more education?: Yes Please select the resources that you would like help with: None Currently or been in a relationship where the following occur: No concerns reported THRIVE Score: 0 AUDIT C Alcohol Use Questionnaire (AUDIT-C) 1. How often do you have a drink containing alcohol?: 2-3 times a week 2. How many drinks containing alcohol do you have on a typical day when you are drinking?: 1 or 2 3. How often do you have six or more drinks on one occasion?: Never Total Score: 3 Score Reviewed/Action Taken: No ALTAGRACIA-7 AMB Questionnaire ALTAGRACIA-7 Date ALTAGRACIA - 7 assessed: 10/13/24 Feeling nervous, anxious, or on edge: 0 = Not at all Not being able to stop or control worryin = Not at all Worrying too much about different things: 0 = Not at all Trouble relaxin = Not at all Being so restless that it is hard to sit still: 0 = Not at all Becoming easily annoyed or irritable: 0 = Not at all Feeling afraid as if something awful might happen: 0 = Not at all Total ALTAGRACIA-7 score (0-4 normal; 5-9 mild; 10-14 moderate; 15-21 severe): 0 Source: Developed by Drs. Joshua Villanueva, Jenny Kay, Clark Woody and colleagues, with an educational raymundo from [employer]. Review of Systems Eyes Denies loss of vision ENT Denies vertigo and Denies sore throat Card Denies chest pain, Denies leg edema and Denies lightheadedness Resp Denies cough, Denies hemoptysis and Denies wheezing Neuro Denies Abnormal speech present, Denies vertigo and Denies loss of vision Psych Denies anxiety, Denies depression, Reports difficulty concentrating and Denies panic attacks Aller/Immun Denies wheezing Physical exam (Primary Care) Vital Signs: Last Vital Signs Temp 98.4 F 10/13/24 11:22 Pulse 79 10/13/24 11:22 Resp 16 10/13/24 11:22 BP 128/88 10/13/24 11:22 Pulse Ox 96 10/13/24 11:22 Oxygen Delivery Method Room Air 10/13/24 11:22 BMI result Body Mass Index 32.2 Tobacco/Smoking Status: Tobacco use Status Tobacco use date assessed 10/13/24 10/13/24 11:31 Patient Tobacco Use Status Never used Tobacco 10/13/24 11:31 e-Cigarette/Vaping Use Never Used 10/13/24 11:31 PHQ-9: PHQ-9 Score PHQ-9: Total score 0 10/13/24 12:10 Depression Screening Interpretation: Negative Thrive Assessment: Date of Thrive Assessment Date Thrive assessed 10/13/24 10/13/24 11:31 Currently or been in a relationship where the following occur: No concerns reported Const General: healthy appearing, no acute distress, alert and awake Nutritional Appearance: well nourished Orientation/consciousness: oriented to person, oriented to place and oriented to time HENMT Ears: external ears normal General nose exam: Normal external nose present Eyes Conjunctivae: conjunctivae normal Sclerae: sclerae normal Pupils: Equal, round and reactive pupils present Neck Neck: Yes no lymphadenopathy and Yes no JVD Thyroid: Thyroid normal Carotids: no bruits Resp Effort & Inspection: normal respiratory effort and not tachypneic Auscultation: no crackles, no rales, no rhonchi and no wheezes Cardio Rate: regular rate Rhythm: regular rhythm Heart sounds: no murmurs and normal S1 and S2 Neuro General: oriented to person, oriented to place and oriented to time Cranial nerves: Yes Equal, round and reactive pupils present Speech: No Abnormal speech present Gait exam (Neuro): Normal gait present Psych Mental Status: mental status grossly normal Speech and movement: Normal speech and movement present Affect: normal affect Attitude: cooperative Thought process: Normal thought process present Coding Level of Care Code Est Pt Level 3 (51826) Diagnoses Pure hypercholesterolemia with target low density lipoprotein (LDL) cholesterol less than 130 mg/dL E78.00 Attention and concentration deficit R41.840 Elevated alanine aminotransferase (ALT) level R74.01 Time Spent (min) 33 Assessment & Plan Assessment & Plan (1) Pure hypercholesterolemia with target low density lipoprotein (LDL) cholesterol less than 130 mg/dL: Code(s): E78.00 - Pure hypercholesterolemia, unspecified Category: Medical Plan: The patient did not complete his preordered labs to review today. Reports that he will complete this soon his last total cholesterol was 231 and LDL 167. He does not want to be started on medication at this time. Reports that he wants to try to make lifestyle modifications 1st. Will advise when he complete labs. (2) Attention and concentration deficit: Code(s): R41.840 - Attention and concentration deficit Category: Medical Plan: Reports lifelong sporadic decision making and difficulty concentrating will refer the patient to psychiatry (3) Elevated alanine aminotransferase (ALT) level: Code(s): R74.01 - Elevation of levels of liver transaminase levels Category: Medical Plan: ALT was slightly elevated on his last labs awaitng follow-up labs completion to advise Orders: Orders TSH reflex Free T4 3 Months E05.90 - Thyrotoxicosis, unspecified without thyrotoxic crisis or storm, E78.00 - Pure hypercholesterolemia, unspecified, R53.83 - Other fatigue UA CC w/rflx Micro + Cult 3 Months E05.90 - Thyrotoxicosis, unspecified without thyrotoxic crisis or storm, E78.00 - Pure hypercholesterolemia, unspecified, R53.83 - Other fatigue Free T4 (Free Thyroxine) 3 Months E05.90 - Thyrotoxicosis, unspecified without thyrotoxic crisis or storm, E78.00 - Pure hypercholesterolemia, unspecified, R53.83 - Other fatigue Vitamin D 25-OH Total 3 Months E05.90 - Thyrotoxicosis, unspecified without thyrotoxic crisis or storm, E78.00 - Pure hypercholesterolemia, unspecified, R53.83 - Other fatigue Lipid Panel 3 Months E05.90 - Thyrotoxicosis, unspecified without thyrotoxic crisis or storm, E78.00 - Pure hypercholesterolemia, unspecified, R53.83 - Other fatigue Complete Blood Count Auto Diff 3 Months E05.90 - Thyrotoxicosis, unspecified without thyrotoxic crisis or storm, E78.00 - Pure hypercholesterolemia, unspecified, R53.83 - Other fatigue Comprehensive [place]. Panel Fast 3 Months E05.90 - Thyrotoxicosis, unspecified wi thout thyrotoxic crisis or storm, E78.00 - Pure hypercholesterolemia, unspecified, R53.83 - Other fatigue Referrals Psychiatry Referral R41.840 - Attention and concentration deficit
--- OUTSIDE RECORDS SUMMARY | 2024-10-13 11:43 | XMS_ITS | Clinical Summary ---
Author Organization [facility] Address [address] [place] [address] Care Team Providers Care Hair Spinner Name Role Phone Ariel Glass MD Primary Care Provider Allergies Active Allergy Reactions Criticality Noted Date Comments Amoxicillin Unknown/Patient and Family Unable to Define Medium 08/27/2015 Medications valACYclovir (VALTREX) 1000 MG tabletIndicatio ns:Herpes simplex Take 2 tablets (2,000 mg total) by mouth 2 (two) times a day. 4 tablet 2 12/19/19 16 Active Probiotic Product (PROBIOTIC ACIDOPHILUS BEADS) Cap Take by mouth. Acti ve Multiple Vitamin tablet Take 1 tablet by mouth daily. Active Misc Natural Products (APPLE CIDER VINEGAR DIET PO) Take by mouth. Activ e Na Sulfate-K Sulfate-Mg Sulf (SUPREP BOWEL PREP KIT) 17.5-3.13-1.6 GM/177ML SolutionIndicat ions:Change in bowel function Take two 177 mL bottles as directed 2 Bottle 05/27/19 19 Active Calcium Carb-Cholecalci ferol (CALCIUM 1000 + D PO) Take by mouth. Ac tive Potassium 95 MG Tab Take by mouth. Activ e magnesium oxide 400 (241.3 Mg) MG Tab tablet Take 400 mg by mouth daily. Active mesalamine (CANASA) 1000 MG suppositoryIndi cations:Proctit is INSERT 1 SUPPOSITORY RECTALLY NIGHTLY FOR AT LEAST 1 TO 3 HOURS 14 suppository 05/29/19 22 Active Active Problems No known active problems [...] at Not on file Legal Sex Male 3:36 PM EDT Gender Identity Not on file Sexual Orientation Not on file Last Filed Vital Signs Vital Sign Reading Time Taken Comments Blood Pressure 120/68 02/13/2021 10:09 AM EDT Pulse 60 02/13/2021 10:09 AM EDT Temperature 36.8 C (98.3 F) 02/13/2021 10:09 AM EDT Respiratory Rate 14 04/20/2016 10:10 AM EST [...] - 19+ 3-dose series) 1999 COVID-19 Vaccine (2023-2 5 season) 2023 04/29/2021, 06/24/2020, 05/05/2020 Influenza Vaccine 11/24/2024 HPV Vaccines Aged Out No longer eligi ble based on patient's age to complete this topic Pneumococcal Vaccine: Pediatric (0-5 Years) and At-Risk Patients (6 to 49 Years) Aged Out No longer eligible b ased on patient's age to complete this topic Insurance [facility] Care Teams Hair Spinner Relationship Specialty Start Date End Date Ariel Glass MD [address] [place] [id number] PCP - General Internal Medicine 02/11/21
== END 2024-10-13 12:19 | disposition home or self-care (01) ==
LOC: HO.HMCH 11:21
DX: E78.00 Pure hypercholesterolemia, unspecified (principal); R41.840 Attention and concentration deficit; R74.01 Elevation of levels of liver transaminase levels

== ENCOUNTER → 2024-10-13 11:20 | Outpatient (BNVA) | payer OTHER, SELFPAY | DX: Z13.89 Encounter for screening for other disorder (principal) ==

== ENCOUNTER 2024-10-25 10:53 | Outpatient (REF) | payer OTHER, SELFPAY ==
[2024-10-25 11:10] LABS: MANUAL DIFF FLAG NO
--- OUTSIDE RECORDS SUMMARY | 2024-10-25 11:38 | XMS_ITS ---
Author Name [facility] Organization Unknown Encounters Encounter Type Encounter Reason Primary Diagnosis Location Date Ambulatory [facility] 04/27 Emergency NEEDS MED REFILL NEEDS MED REFILL [facility] 02/05/2023 Ambulatory Other specified diseases of anus and rectum [facility] 02/13/2021 Care Team Organization Name Specialty Phone Email Start Date End Da te [facility] Primary [facility] 06/04/2024 [facility] Primary Care [facility] Primary Care 02/09/2023 025 [facility] Primary Care 02/05/2023 023 [facility] Primary Care 02/13/[id number] [facility] Frank Mart[facility]nezey Primary Care 02/13/2021 02/14/20 21 [facility] Primary Care [id number]/13/[id number] [facility] Primary Care 01/27/2021 05/29/2021 [facility] OANH JOHNSON Primary Care
--- OUTSIDE RECORDS SUMMARY | 2024-10-25 11:38 | XMS_ITS | Clinical Summary ---
Author Organization [facility] Address [address] [place] [address] Care Team Providers Care Supervisor Customer Records Division Name Role Phone Unknown Pcp, Non Php [...] syndrome) 04/23/2020 HSV infection 12/04/2019 Hyperlipidemia 02/17/2017 Family History Medical History Relation Name Comments [...] 66 05/06/2021 8:14 AM EST Temperature 36.6 C (97.8 F) 05/06/2021 8:14 AM EST Respiratory Rate 18 05/06/2021 8:14 AM EST [...] - 19+ 3-dose series) 1999 COVID-19 Vaccine ( - 2023- season) 2023 Influenza (#1) 2024 Zoster (Shingrix) (1 of 2) 2030 Colonoscopy [...] PM EST FASTING: NO Fasting reference interval. [facility] Lipid testing results require a 12 hour fasting specimen. Use caution when interpreting non-fasting cholesterol and triglyceride results. Testing Performed at: [facility], [address] [place] [address], , Real Time Operator: Camelia Lomeli MD CL#[id number] 2:45PM by Ariel Glass: Glucose is just slightly elevated. Nearly normal. Lipids fine --all okay, no other action needed at this time Ariel Glass MD LABORATORY Final Resul t [...] 05/01/2020 8:26 PM EST Testing Performed at: [facility], [address] [place], [place] [id number], , Real Time Operator: Chela Art MD CL#[id number] 11:27PM by Ariel Glass: All labs FINE. Glucose, Lipids ok. Thyroid fuction [...] Recently Relevant to Health Maintenance Care Teams Supervisor Customer Records Division Relationship Specialty Start Date End Date Unknown Pcp, Non Php PCP - General 05/22/24
--- OUTSIDE RECORDS SUMMARY | 2024-10-25 11:38 | XMS_ITS | Clinical Summary ---
Author Organization [facility] Address [address] [place] [address] Care Team Providers Care Press Machine Feeder Name Role Phone Ariel Glass MD Primary Care Provider [phone] Allergies Active Allergy Reactions Criticality Noted Date [...] patient's age to complete this topic Insurance [facility] Care Teams Press Machine Feeder Relationship Specialty Start Date End Date Ariel Glass MD [address] [place] [address] PCP - General Internal Medicine 02/11/21
[2024-10-25 12:14] LABS: Hematocrit 44.8 % (42.0-52.0); Hemoglobin 15.6 g/dl (14.0-18.0); Imm Gran Abs Auto 0.02 X10*3/uL (0.00-0.03); Imm Gran Pct Auto 0.3 % (0.0-0.4); Lymphocytes Absolute Auto 1.9 X10*3/uL (1.2-4.9); Mean Corpuscular HGB Conc 34.8 g/dl (31.0-36.0); Mean Corpuscular Hemoglobin 31.1 pg (27.0-33.0); Mean Corpuscular Volume 89.2 fL (80.0-98.0); NRBC Abs Auto 0.000 X10*3/uL (0.0-0.012); NRBC Pct Auto 0.0 /100WBC (0.0-0.2); Platelet Count 232 X10*3/uL (160-400); Red Blood Count 5.02 X10*6/uL (4.60-5.80); White Blood Count 7.8 X10*3/uL (4.8-10.8)
[2024-10-25 12:23] LABS: Appearance Urine Clear; Glucose Urine UA Negative (Negative); PH 6.0 (5.0-9.0); Specific Gravity - Urine 1.015 (1.005-1.025); UMIC TRIGGER UACC YES
[2024-10-25 12:56] LABS: Alanine Aminotransferase 26 U/L (0-40); Albumin Level 4.8 g/dL (3.5-5.0); Alkaline Phosphatase 73 U/L (39-117); Anion Gap 14 (12-20); Aspartate Amino Transferase 21 U/L (5-37); Blood Urea Nitrogen 10 mg/dL (9-16); Calcium 10.2 mg/dL (8.4-10.2); Carbon Dioxide 27 mmol/L (22-29); Chloride 103 mmol/L (96-108); Cholesterol 202 mg/dL (<200); Estimated Glomerular Filt Rate > 60; HDL Cholesterol 48 mg/dL (>40); Potassium 5.1 mmol/L (3.3-5.1); Sodium 139 mmol/L (135-145); Total Protein 7.6 g/dL (6.5-8.0); Triglycerides 87 mg/dL (<150)
[2024-10-25 13:02] LABS: Free T4 (Free Thyroxine) 1.20 ng/dL (0.71-1.85)
== END 2024-10-25 10:54 | disposition home or self-care (01) ==
LOC: HO.LAB 10:53
DX: E05.90 Thyrotoxicosis, unspecified without thyrotoxic crisis or storm (principal); R53.83 Other fatigue; E78.00 Pure hypercholesterolemia, unspecified
CPT/HCPCS: 36415; 80053; 80061; 81001; 82306; 84439; 84443; 85025

== ENCOUNTER 2025-01-17 12:34 | Outpatient (REF) | payer OTHER, SELFPAY ==
[2025-01-17 13:03] LABS: MANUAL DIFF FLAG NO
[2025-01-17 13:43] LABS: Hematocrit 46.3 % (42.0-52.0); Hemoglobin 16.3 g/dl (14.0-18.0); Imm Gran Abs Auto 0.02 X10*3/uL (0.00-0.03); Imm Gran Pct Auto 0.3 % (0.0-0.4); Lymphocytes Absolute Auto 1.9 X10*3/uL (1.2-4.9); Mean Corpuscular HGB Conc 35.2 g/dl (31.0-36.0); Mean Corpuscular Hemoglobin 31.2 pg (27.0-33.0); Mean Corpuscular Volume 88.5 fL (80.0-98.0); NRBC Abs Auto 0.000 X10*3/uL (0.0-0.012); NRBC Pct Auto 0.0 /100WBC (0.0-0.2); Platelet Count 245 X10*3/uL (160-400); Red Blood Count 5.23 X10*6/uL (4.60-5.80); White Blood Count 6.8 X10*3/uL (4.8-10.8)
[2025-01-17 14:12] LABS: Appearance Urine Clear; Glucose Urine UA Negative (Negative); PH 5.5 (5.0-9.0); Specific Gravity - Urine 1.020 (1.005-1.025)
[2025-01-17 14:33] LABS: Alanine Aminotransferase 29 U/L (0-40); Albumin Level 5.0 g/dL (3.5-5.0); Alkaline Phosphatase 72 U/L (39-117); Anion Gap 12 (12-20); Aspartate Amino Transferase 24 U/L (5-37); Blood Urea Nitrogen 11 mg/dL (9-16); Calcium 9.8 mg/dL (8.4-10.2); Carbon Dioxide 28 mmol/L (22-29); Chloride 103 mmol/L (96-108); Cholesterol 217 mg/dL (<200); Estimated Glomerular Filt Rate > 60; Free T4 (Free Thyroxine) 1.17 ng/dL (0.71-1.85); HDL Cholesterol 45 mg/dL (>40); Potassium 4.3 mmol/L (3.3-5.1); Sodium 139 mmol/L (135-145); Total Protein 8.0 g/dL (6.5-8.0); Triglycerides 74 mg/dL (<150)
--- OUTSIDE RECORDS SUMMARY | 2025-01-17 15:07 | XMS_ITS | Clinical Summary ---
Author Organization [facility] Address [address] [place] [address] Care Team Providers Care Financial Economist Name Role Phone Unknown Pcp, Non Php [...] 3-dose series) 1999 COVID-19 Vaccine ( - season) 2024 Influenza (#1) 2024 Zoster (Shingrix) (1 of 2) 2030 Colonoscopy Discontinued 06/02/2018, 06/02/2018 Hepatitis C Screening Completed 05/01/2020 LDL Cholesterol Discontinued 05/06/2021, 09/2020, 04/07/2018 Physical Discontinued 05/06/2021, 03/27, 04/13/2019, Additional history exists HPV Vaccine (No Doses Required) Completed Hep A Aged Out No longer eligi [...] cholesterol and triglyceride results. Testing Performed at: [facility], [address] [place] [address], , Mechanical Design Engineer: Camelia Lomeli MD CL#[id number] 2:45PM by Ariel Glass: Glucose is just [...] 05/01/2020 8:26 PM EST Testing Performed at: [facility], [address] [place], [place] [id number], , Mechanical Design Engineer: Chela Art MD CL#[id number] 11:27PM by Ariel Glass: All labs FINE. [...] Recently Relevant to Health Maintenance Care Teams Financial Economist Relationship Specialty Start Date End Date Unknown Pcp, Non Php PCP - General 05/22/24
--- OUTSIDE RECORDS SUMMARY | 2025-01-17 15:07 | XMS_ITS | Encounter Summary ---
Author Organization [facility] Address [address] [place] [address] Care Team Providers Care Patient Support Associate Name Role Phone Pcp, Amanda Primary Care Provider Sona Dial APRN Primary Care Provider Frank Hargrove MD Primary Care Provider Ariel Glass MD Primary Care Provider [phone] Reason for Visit * Reason Comments Medication Refill Encounter Details Date Type Department Care Team (Late st Contact Info) Description 06/02/2017 Refill [facility] [place] [address] [place] [address] Ivory Vaca PA [address] [place] [address] Herpes simplex Social History Tobacco [...] complication documented in this encounter Care Teams Patient Support Associate Relationship Specialty Start Date End Date Pcp, No PCP - General General Medicine 08/16/15 04/24/18 Sona Hargrove APRN [address] [place] [address] PCP - General 04/25/18 05/26/18 Frank Hargrove MD [address] [place], [place] [address] [place] [address] PCP - General Internal Medicine 05/27/18 02/10/21 Ariel Glass MD [address] [place] [address] PCP - General Internal Medicine 02/11/21 documented as of this encounter
--- OUTSIDE RECORDS SUMMARY | 2025-01-17 15:07 | XMS_ITS | Encounter Summary ---
Author Organization [facility] Address [address] [place] [address] Care Team Providers Care Nuclear Medicine Chief Technologist Name Role Phone Frank Hargrove MD Primary Care Provider [phone] Ariel Glass MD Primary Care Provider [phone] Encounter Details Date Type Department Care Team (Late st Contact Info) Description 06/02/2018 Scanned Document [facility] [address] [place] [address] [phone] Frank Connor MD [address] [place] [address] Social History Tobacco Use Types Packs/Day Years [...] (REPORT) PATHOLOGY REPORT (06/02/2018 12:00 AM EST) us Frank Connor MD PATHOLOGY/CYTOLOGY ORDERABLES Final Result documented in this encounter Visit Diagnoses Not on filedocumented in this encounter Care Teams Nuclear Medicine Chief Technologist Relationship Specialty Start Date End Date Frank Hargrove MD PCP - General Internal Medicine 05/27/18 02/10/21 Ariel Glass MD [address] [place] [address] PCP - General Internal Medicine 02/11/21 documented as of this encounter
--- OUTSIDE RECORDS SUMMARY | 2025-01-17 15:07 | XMS_ITS | Clinical Summary ---
Author Organization [facility] Address [address] [place] [address] Care Team Providers Care Technical Education Teacher Name Role Phone Ariel Glass MD Primary [...] of 3 - 19+ 3-dose series) 1999 HPV Vaccines (1 - 3-dose SCD M series) 2007 Influenza Vaccine 11/24/2024 COVID-19 Vaccine (4 - 2024-2 6 season) 2024 04/29/2021, 06/24/2020, 05/05/2020 Pneumococcal Vaccine: Pediatric (0-5 Years) and At-Risk Patients (6 to 49 Years) Aged Out No longer eligible b ased on patient's age to complete this topic Insurance [facility] Care Teams Technical Education Teacher Relationship Specialty Start Date End Date Ariel Glass MD [address] [place] [address] PCP - General Internal Medicine 02/11/21
--- OUTSIDE RECORDS SUMMARY | 2025-01-17 15:07 | XMS_ITS | Encounter Summary ---
Author Organization [facility] Address [address] [place] [address] Care Team Providers Care Change Management Facilitator Name Role Phone Pcp, Amanda Primary Care Provider Sona Dial APRN Primary Care Provider Frank Hargrove MD Primary Care Provider [phone] Ariel Glass MD Primary Care Provider Reason for Visit * Reason Comments Medication Refill Encounter Details Date Type Department Care Team (Late st Contact Info) Description 03/08/2017 Refill [facility] [place] [address] [place] [address] Ivory Vaca PA [address] [place] [address] Herpes simplex Social History Tobacco [...] complication documented in this encounter Care Teams Change Management Facilitator Relationship Specialty Start Date End Date Pcp, No PCP - General General Medicine 08/16/15 04/24/18 Sona Hargrove APRN [address] [place] [address] PCP - General 04/25/18 05/26/18 Frank Hargrove MD [address] [place], [place] [address] [place] [address] PCP - General Internal Medicine 05/27/18 02/10/21 Ariel Glass MD [address] [place] [address] PCP - General Internal Medicine 02/11/21 documented as of this encounter
--- OUTSIDE RECORDS SUMMARY | 2025-01-17 15:07 | XMS_ITS | Encounter Summary ---
Author Organization [facility] Address [address] [place] [address] Care Team Providers Care Tug Master Name Role Phone Pcp, No Primary Care Provider Sona Dial APRN Primary Care Provider Frank Hargrove MD Primary Care Provider Ariel Glass MD Primary Care Provider Encounter Details Date Type Department Care Team (Late st Contact Info) Description 04/07/2018 Scanned Document [facility] INTERNAL MED SCAN Frank Hargrove MD [address] [place] [address] Social History Tobacco Use Types Packs/Day Years [...] on filedocumented in this encounter Care Teams Tug Master Relationship Specialty Start Date End Date Pcp, No PCP - General General Medicine 08/16/15 04/24/18 Sona Hargrove APRN [address] [place], [place] [id number] PCP - General 04/25/18 05/26/18 Frank Hargrove MD [address] [place] [address] PCP - General Internal Medicine 05/27/18 02/10/21 Ariel Glass MD [address] [place] [address] PCP - General Internal Medicine 02/11/21 documented as of this encounter
== END 2025-01-17 12:35 | disposition home or self-care (01) ==
LOC: HO.LAB 12:34
DX: R53.83 Other fatigue (principal); E78.00 Pure hypercholesterolemia, unspecified; E05.90 Thyrotoxicosis, unspecified without thyrotoxic crisis or storm
CPT/HCPCS: 36415; 80053; 80061; 81003; 82306; 84439; 84443; 85025

== ENCOUNTER 2025-01-19 11:26 | Outpatient (AMB) | payer OTHER, SELFPAY ==
--- NOTE | 2025-01-19 11:31 | A.OFFPC_ITS ---
Vital Signs 01/19/25 11:32 Height 5 ft 9 in Weight 213 lb 8 oz BMI 31.5 BP 128/84 Blood Pressure Location Lt brachial Position Sitting Respiration 18 Pulse 78 Pulse Source Pulse Oximeter Temp 97.3 F Temp Source Temporal Artery Scan Pulse Oximetry (%) 98 Oxygen Delivery Method Room Air Intake Visit Reasons: hld/hypothryroidism Merchandising Manager Required: No Accompanied by: Self / Same As Patient Allergies amoxicillin Allergy (Mild, Verified 01/19/25 11:44) Hives Medication List - Last Reconciled 01/19/25 by FRANCISCA Huber No Known Home Meds Tobacco use date assessed: 01/19/25 Dental Screening Dental Screen Date: 01/19/25 Did you have a dental visit in the last 12 months?: Yes Did you have a dental problem in the last 6 months where you did not have access to dental care?: No Was dental information given to patient?: Patient has dentist HPI hld/hypothryroidism HPI Details The patient is a 44-year-old male presenting with elevated cholesterol levels. He noted an increase in cholesterol from 137 to 158 mg/dL, despite dietary modifications aimed at reducing fat intake. Social events over the past few months may have contributed to this rise. The patient also expressed concerns about potential ADHD and was contacted for a psychiatric evaluation, which he initially declined due to misunderstandings about the process. He is considering a career change to pursue more meaningful work, which he feels may be facilitated by addressing his mental health. Thyroid function was assessed and found to be normal, alleviating concerns in that area. [facility] Medical History (Updated 01/19/25 @ 13:07 by FRANCISCA Huber) Acute streptococcal pharyngitis Hyperlipidemia Lactose intolerance Proctitis IBS (irritable bowel syndrome) Erectile dysfunction HSV-1 (herpes simplex virus 1) infection Surgical History History of repair of anterior cruciate ligament of left knee Family History Mother Breast cancer Myocardial infarction Other Heart disease Social History Housing: House Patient Tobacco Use Status: Never used Tobacco e-Cigarette/Vaping Use: Never Used Second Hand Smoke Exposure: No service: No Current occupational status: employed 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 Cognitive needs: No Hearing needs: No Vision needs: Yes (Glasses) Questionnaire Thrive Questionnaire Date Thrive assessed: 10/13/24 I am a: Patient What is your living situation today?: I have a steady place to live Within the past 12 months, did the food you bought not last and you didn't have the money to get more?: Never true Within the past 12 months, did you worry whether your food would run out before you got money to buy more?: Never true Do you have trouble paying for medicines?: No Do you have trouble getting transportation to medical appointments?: No Do you have trouble paying your heating and electricity bill?: No Do you have trouble taking care of your child, family member or friend?: No Do you have trouble with day-to-day activities such as bathing, preparing meals, shopping, managing finances, etc.?: No Are you currently unemployed and looking for a job?: No Are you interested in more education?: Yes Please select the resources that you would like help with: None Currently or been in a relationship where the following occur: No concerns reported THRIVE Score: 0 ALTAGRACIA-7 AMB Questionnaire ALTAGRACIA-7 Date ALTAGRACIA - 7 assessed: 10/13/24 Source: Developed by Drs. Joshua Villanueva, Jenny Kay, Clark Woody and colleagues, with an educational raymundo from [employer]. Review of Systems Const Denies body aches, Denies chills, Denies fever(s), Denies headache(s) and Denies poor appetite Eyes Reports no additional complaints ENT Denies dysphagia, Denies dizziness, Denies headache(s) and Denies odynophagia Card Denies chest pain, Denies syncope, Denies edema, Denies irregular heart rhythm, Denies lightheadedness and Denies dyspnea Resp Denies cough and Denies dyspnea GI Denies abdominal pain, Denies constipation, Denies dysphagia, Denies diarrhea, Denies nausea, Denies odynophagia and Denies vomiting Reports no additional complaints Musc Reports no additional complaints and Denies abnormal gait Skin/Breast Reports system reviewed and no additional complaints, except as documented Neuro Denies abnormal gait, Denies dizziness, Denies syncope and Denies headache(s) Psych Reports difficulty concentrating Physical exam (Primary Care) Vital Signs: Last Vital Signs Temp 97.3 F 01/19/25 11:32 Pulse 78 01/19/25 11:32 Resp 18 01/19/25 11:32 BP 128/84 01/19/25 11:32 Pulse Ox 98 01/19/25 11:32 Oxygen Delivery Method Room Air 01/19/25 11:32 BMI result Body Mass Index 31.5 Tobacco/Smoking Status: Tobacco use Status Tobacco use date assessed 01/19/25 01/19/25 11:37 Patient Tobacco Use Status Never used Tobacco 01/19/25 11:37 e-Cigarette/Vaping Use Never Used 01/19/25 11:37 Thrive Assessment: Date of Thrive Assessment Date Thrive assessed 10/13/24 01/19/25 11:37 Currently or been in a relationship where the following occur: No concerns reported Const General: cooperative, healthy appearing, comfortable and no acute distress Orientation/consciousness: patient oriented x3 HENMT Head: Yes normocephalic Ears: hearing grossly normal bilaterally General nose exam: Normal external nose present Eyes General: appearance normal, both eyes and all related structures Conjunctivae: conjunctivae normal Neck Neck: Yes full ROM and Yes no lymphadenopathy Resp Effort & Inspection: normal respiratory effort Auscultation: clear to auscultation bilaterally, no crackles, no rales, no rhonchi and no wheezes Cardio Rate: regular rate Rhythm: regular rhythm Skin General skin exam: no rashes or lesions noted Neuro General: patient oriented x3 Gait exam (Neuro): Normal gait present Extrem General: Yes normal to inspection, Yes full ROM and No edema Psych Affect: normal affect Attitude: cooperative Insight: Good insight present (Psych) Judgement: Good judgement present (Psych) Results Reviewed Results Reviewed: Laboratory Tests 01/17/25 01/17/25 12:46 13:00 WBC 6.8 RBC 5.23 Hgb 16.3 Hct 46.3 MCV 88.5 MCH 31.2 MCHC 35.2 RDW 12.4 Plt Count 245 Sodium 139 Potassium 4.3 Chloride 103 Carbon Dioxide 28 Anion Gap 12 BUN 11 Creatinine 1.06 Estimated GFR > 60 Fasting Glucose 83 Calcium 9.8 Total Bilirubin 0.7 AST 24 ALT 29 Alkaline Phosphatase 72 Total Protein 8.0 Albumin 5.0 Triglycerides 74 Cholesterol 217 H LDL Cholesterol, Calc 158 H HDL Cholesterol 45 25-OH Vitamin D Total 52.0 TSH 1.21 Free T4 1.17 Urine Color Yellow Urine Appearance Clear Urine pH 5.5 Ur Specific [place] 1.020 Urine Protein Negative Urine Glucose (UA) Negative Urine Ketones 15 Urine Blood Negative Urine Nitrite Negative Ur Leukocyte Esterase Negative Coding Level of Care Code Est Pt Level 3 (48392) Diagnoses Pure hypercholesterolemia with target low density lipoprotein (LDL) cholesterol less than 130 mg/dL E78.00 Elevated alanine aminotransferase (ALT) level R74.01 Low TSH level R79.89 Attention and concentration deficit R41.840 Time Spent (min) 37 Assessment & Plan Assessment & Plan (1) Pure hypercholesterolemia with target low density lipoprotein (LDL) cholesterol less than 130 mg/dL: Code(s): E78.00 - Pure hypercholesterolemia, unspecified Category: Medical Plan: LDL 158 increased from 137-goal is less than 100 mg/dL Reinforced low-cholesterol diet and activity as tolerated We will repeat lipid panel in 3 months (2) Elevated alanine aminotransferase (ALT) level: Code(s): R74.01 - Elevation of levels of liver transaminase levels Category: Medical Plan: ALT was slightly elevated on previous lab-this has normalized on current blood work We will continue to monitor (3) Low TSH level: Code(s): R79.89 - Other specified abnormal findings of blood chemistry Category: Medical Plan: Euthyroidism on recent labs. We will continue to monitor (4) Attention and concentration deficit: Code(s): R41.840 - Attention and concentration deficit Category: Medical Plan: Reports lifelong sporadic decision making and difficulty concentrating The patient was referred to Psychiatry for evaluation. The patient was called Psychiatry to schedule a visit. However, the patient was taken back by the multiple mental disorders that the specialty treats. Per patient, he thought that they had made a mistake; he plans on reaching back out to them after this as explained to him again. Orders: Orders UA CC w/rflx Micro + Cult 3 Months E05.90 - Thyrotoxicosis, unspecified without thyrotoxic crisis or storm, E78.00 - Pure hypercholesterolemia, unspecified, R41.840 - Attention and concentration deficit, R53.83 - Other fatigue, R74.01 - Elevation of levels of liver transaminase levels TSH reflex Free T4 3 Months E05.90 - Thyrotoxicosis, unspecified without thyrotoxic crisis or storm, E78.00 - Pure hypercholesterolemia, unspecified, R41.840 - Attention and concentration deficit, R53.83 - Other fatigue, R74.01 - Elevation of levels of liver transaminase levels Comprehensive [place]. Panel Fast 3 Months E05.90 - Thyrotoxicosis, unspecified without thyrotoxic crisis or storm, E78.00 - Pure hypercholesterolemia, unspecified, R41.840 - Attention and concentration deficit, R53.83 - Other fa tigue, R74.01 - Elevation of levels of liver transaminase levels Free T4 (Free Thyroxine) 3 Months E05.90 - Thyrotoxicosis, unspecified without thyrotoxic crisis or storm, E78.00 - Pure hypercholesterolemia, unspecified, R41.840 - Attention and concentration deficit, R53.83 - Other fatigue, R74.01 - Elevation of levels of liver transaminase levels Lipid Panel 3 Months E05.90 - Thyrotoxicosis, unspecified without thyrotoxic crisis or storm, E78.00 - Pure hypercholesterolemia, unspecified, R41.840 - Attention and concentration deficit, R53.83 - Other fatigue, R74.01 - Elevation of levels of liver transaminase levels
[2025-01-19 11:32] VITALS: BP 128/84; PULSE 78; RESP 18; TEMP 36.3; O2SAT 98; BMI 31.5
--- OUTSIDE RECORDS SUMMARY | 2025-01-19 13:18 | XMS_ITS | Clinical Summary ---
Author Organization [facility] Address [address] [place] [address] Care Team Providers Care Balance Wheel Motion Inspector Name Role Phone Ariel Glass MD [...] patient's age to complete this topic Insurance [facility] Care Teams Balance Wheel Motion Inspector Relationship Specialty Start Date End Date Ariel Glass MD [address] [place] [address] PCP - General Internal Medicine 02/11/21
--- OUTSIDE RECORDS SUMMARY | 2025-01-19 13:18 | XMS_ITS | Encounter Summary ---
Author Organization [facility] Address [address] [place] [address] Care Team Providers Care Privacy Director Name Role Phone Frank Hargrove MD Primary Care Provider [phone] Ariel Glass MD Primary Care Provider [phone] Encounter Details Date Type Department Care Team (Late st Contact Info) Description 06/02/2018 Scanned Document [facility] [address] [place] [address] [phone] Frank Connor MD [address] [place] [address] Social History Tobacco Use Types Packs/Day Years [...] on filedocumented in this encounter Care Teams Privacy Director Relationship Specialty Start Date End Date Frank Hargrove MD PCP - General Internal Medicine 05/27/18 02/10/21 Ariel Glass MD [address] [place] [address] PCP - General Internal Medicine 02/11/21 documented as of this encounter
--- OUTSIDE RECORDS SUMMARY | 2025-01-19 13:18 | XMS_ITS | Clinical Summary ---
Author Organization [facility] Address [address] [place] [address] Care Team Providers Care Head Lineman Name Role Phone Unknown Pcp, Non Php [...] cholesterol and triglyceride results. Testing Performed at: [facility], [address] [place] [address], , Ep Technologist: Camelia Lomeli MD CL#[id number] 2:45PM by Ariel Glass: Glucose is just [...] 05/01/2020 8:26 PM EST Testing Performed at: [facility], [address] [place], [place] [id number], , Ep Technologist: Chela Art MD CL#[id number] 11:27PM by Ariel Glass: All labs FINE. [...] Recently Relevant to Health Maintenance Care Teams Head Lineman Relationship Specialty Start Date End Date Unknown Pcp, Non Php PCP - General 05/22/24
--- OUTSIDE RECORDS SUMMARY | 2025-01-19 13:18 | XMS_ITS | Encounter Summary ---
Author Organization [facility] Address [address] [place] [address] Care Team Providers Care Delivery Table Operator Name Role Phone Pcp, Amanda Primary Care Provider Sona Dial APRN Primary Care Provider [phone] Frank Hargrove MD Primary Care Provider [phone] Ariel Glass MD Primary Care Provider Reason for Visit * Reason Comments Medication Refill Encounter Details Date Type Department Care Team (Late st Contact Info) Description 06/02/2017 Refill [facility] [place] [address] [place] [address] Ivory Vaca PA [address] [place] [address] Herpes simplex Social History Tobacco [...] complication documented in this encounter Care Teams Delivery Table Operator Relationship Specialty Start Date End Date Pcp, No PCP - General General Medicine 08/16/15 04/24/18 Sona Hargrove APRN [address] [place] [address] PCP - General 04/25/18 05/26/18 Frank Hargrove MD [address] [place], [place] [address] [place] [address] PCP - General Internal Medicine 05/27/18 02/10/21 Ariel Glass MD [address] [place] [address] PCP - General Internal Medicine 02/11/21 documented as of this encounter
--- OUTSIDE RECORDS SUMMARY | 2025-01-19 13:18 | XMS_ITS | Encounter Summary ---
Author Organization [facility] Address [address] [place] [address] Care Team Providers Care Gourmet Coffee Attendant Name Role Phone Pcp, No Primary Care Provider Sona Dial APRN Primary Care Provider Frank Hargrove MD Primary Care Provider Ariel Glass MD Primary Care Provider Encounter Details Date Type Department Care Team (Late st Contact Info) Description 04/07/2018 Scanned Document [facility] INTERNAL MED SCAN Frank Hargrove MD [address] [place] [address] Social History Tobacco Use Types Packs/Day Years [...] on filedocumented in this encounter Care Teams Gourmet Coffee Attendant Relationship Specialty Start Date End Date Pcp, No PCP - General General Medicine 08/16/15 04/24/18 Sona Hargrove APRN [address] [place], [place] [phone] PCP - General 04/25/18 05/26/18 Frank Hargroev MD [address] [place] [address] PCP - General Internal Medicine 05/27/18 02/10/21 Ariel Glass MD [address] [place] [address] PCP - General Internal Medicine 02/11/21 documented as of this encounter
--- OUTSIDE RECORDS SUMMARY | 2025-01-19 13:18 | XMS_ITS | Encounter Summary ---
Author Organization [facility] Address [address] [place] [address] Care Team Providers Care Pharmaceutical Engineer Name Role Phone Pcp, Amanda Primary Care Provider Sona Dial APRN Primary Care Provider Frank Hargrove MD Primary Care Provider [phone] Ariel Glass MD Primary Care Provider Reason for Visit * Reason Comments Medication Refill Encounter Details Date Type Department Care Team (Late st Contact Info) Description 03/08/2017 Refill [facility] [place] [address] [place] [address] Ivory Vaca PA [address] [place] [address] Herpes simplex Social History Tobacco [...] complication documented in this encounter Care Teams Pharmaceutical Engineer Relationship Specialty Start Date End Date Pcp, No PCP - General General Medicine 08/16/15 04/24/18 Sona Hargrove APRN [address] [place] [address] PCP - General 04/25/18 05/26/18 Frank Hargrove MD [address] [place], [place] [address] [place] [address] PCP - General Internal Medicine 05/27/18 02/10/21 Ariel Glass MD [address] [place] [address] PCP - General Internal Medicine 02/11/21 documented as of this encounter
== END 2025-01-19 12:20 | disposition home or self-care (01) ==
LOC: HO.HMCH 11:26
DX: E78.00 Pure hypercholesterolemia, unspecified (principal); R74.01 Elevation of levels of liver transaminase levels; R79.89 Other specified abnormal findings of blood chemistry; R41.840 Attention and concentration deficit

== ENCOUNTER 2025-04-23 12:04 | Outpatient (REF) | payer OTHER, SELFPAY ==
[2025-04-23 13:09] LABS: Appearance Urine Clear; Glucose Urine UA Negative (Negative); PH 6.0 (5.0-9.0); Specific Gravity - Urine <= 1.005 (1.005-1.025)
[2025-04-23 13:42] LABS: Alanine Aminotransferase 32 U/L (0-40); Albumin Level 4.9 g/dL (3.5-5.0); Alkaline Phosphatase 70 U/L (39-117); Anion Gap 11 (12-20); Aspartate Amino Transferase 25 U/L (5-37); Blood Urea Nitrogen 15 mg/dL (9-16); Calcium 9.6 mg/dL (8.4-10.2); Carbon Dioxide 27 mmol/L (22-29); Chloride 107 mmol/L (96-108); Cholesterol 206 mg/dL (<200); Estimated Glomerular Filt Rate > 60; HDL Cholesterol 64 mg/dL (>40); Potassium 4.6 mmol/L (3.3-5.1); Sodium 140 mmol/L (135-145); Total Protein 7.5 g/dL (6.5-8.0); Triglycerides 43 mg/dL (<150)
[2025-04-23 13:53] LABS: Free T4 (Free Thyroxine) 1.07 ng/dL (0.71-1.85)
--- OUTSIDE RECORDS SUMMARY | 2025-04-23 14:10 | XMS_ITS | Encounter Summary ---
Author Organization [facility] Address [address] [place] [id number] Care Team Providers Care Investment Director Name Role Phone Pcp, No Primary Care Provider Sona Dial APRN Primary Care Provider Frank Hargrove MD Primary Care Provider Ariel Glass MD Primary Care Provider Encounter Details Date Type Department Care Team (Late st Contact Info) Description 04/07/2018 Scanned Document [facility] INTERNAL MED SCAN Frank Hargrove MD [address] [place] [address] Social History Tobacco Use Types Packs/Day Years [...] on filedocumented in this encounter Care Teams Investment Director Relationship Specialty Start Date End Date Pcp, No PCP - General General Medicine 08/16/15 04/24/18 Sona Hargrove APRN [address], [place] [phone] PCP - General 04/25/18 05/26/18 Frank Hargrove MD [address] [place] [address] PCP - General Internal Medicine 05/27/18 02/10/21 Ariel Glass MD [address] [place] [phone] PCP - General Internal Medicine 02/11/21 documented as of this encounter
--- OUTSIDE RECORDS SUMMARY | 2025-04-23 14:10 | XMS_ITS | Encounter Summary ---
Author Organization [facility] Address [address] [place] [address] Care Team Providers Care Vice President Of Operations Name Role Phone Frank Hargrove MD Primary Care Provider [phone] Ariel Glass MD Primary Care Provider [phone] Encounter Details Date Type Department Care Team (Late st Contact Info) Description 06/02/2018 Scanned Document [facility] [address] [place] [address] [phone] Frank Connor MD [address] [place] [id number] Social History Tobacco Use Types Packs/Day Years [...] on filedocumented in this encounter Care Teams Vice President Of Operations Relationship Specialty Start Date End Date Frank Hargrove MD PCP - General Internal Medicine 05/27/18 02/10/21 Ariel Glass MD [address] [place] [id number] PCP - General Internal Medicine 02/11/21 documented as of this encounter
--- OUTSIDE RECORDS SUMMARY | 2025-04-23 14:10 | XMS_ITS | Clinical Summary ---
Author Organization [facility] Address [address] [place] [address] Care Team Providers Care Ager Tender Name Role Phone Unknown Pcp, Non [...] - 19+ 3-dose series) 1999 COVID-19 Vaccine (2024- season) 2024 Influenza (#1) 2024 Colon Cancer Screening 06/02/2028 06/02/2018 Zoster (Shingrix) (1 of 2) 2030 Colonoscopy [...] cholesterol and triglyceride results. Testing Performed at: [facility], [address] [place] [address], , Special Effects Designer: Camelia Lomeli MD CL#[id number] 2:45PM by Ariel Glass: Glucose is just [...] 05/01/2020 8:26 PM EST Testing Performed at: [facility], [address] [place], [place] [id number], , Special Effects Designer: Chela Art MD CL#[id number] 11:27PM by Ariel Glass: All labs FINE. [...] Recently Relevant to Health Maintenance Care Teams Ager Tender Relationship Specialty Start Date End Date Unknown Pcp, Non Php PCP - General 05/22/24
--- OUTSIDE RECORDS SUMMARY | 2025-04-23 14:10 | XMS_ITS | Clinical Summary ---
Author Organization [facility] Address [address] [place] [address] Care Team Providers Care Textile Finisher Name Role Phone Ariel Glass MD Primary [...] - 19+ 3-dose series) 1999 Influenza Vaccine 11/24/2024 COVID-19 Vaccine ( - 2024-2 6 season) 2024 04/29/2021, 06/24/2020, 05/05/2020 Colonoscopy 2025 HPV Vaccines (No Doses Required) Completed Pneumococcal Vaccine: Pediatric (0-5 Years) and At-Risk Patients (6 to 49 Years) Aged Out No longer eligible b ased on patient's age to complete this topic Insurance [facility] [place] [employer] [facility] Care Teams Textile Finisher Relationship Specialty Start Date End Date Ariel Glass MD [address] [place] [phone] PCP - General Internal Medicine 02/11/21
== END 2025-04-23 12:05 | disposition home or self-care (01) ==
LOC: HO.10HDL 12:04
DX: R74.01 Elevation of levels of liver transaminase levels (principal); E78.00 Pure hypercholesterolemia, unspecified; E05.90 Thyrotoxicosis, unspecified without thyrotoxic crisis or storm; R41.840 Attention and concentration deficit; R53.83 Other fatigue
CPT/HCPCS: 36415; 80053; 80061; 81003; 84439; 84443